=== PATIENT | female | born 1945 | race Caucasian/White ===

== ENCOUNTER → 2017-11-17 07:57 | Day surgery (SDC) | payer MEDICARE, OTHER, SELFPAY ==
--- NOTE | 2017-11-17 08:01 | PM.HP.1 ---
History of Present Illness Chief complaint: [id number] RIGHT CATARACT WITH *TORIC LENS* Narrative: So Mazariegos is a 72 year old female [facility] Surgical History History of breast augmentation History of carpal tunnel repair History of spinal fusion History of tonsillectomy Status post appendectomy Status post discectomy Status post hemorrhoidectomy Status post hysterectomy with oophorectomy Meds Home Medications Medication Instructions Recorded Confirmed Type multivitamin [Multiple Vitamins] 1 tab PO QDAY #0 06/02/17 History gabapentin [Neurontin] 600 mg PO BID #0 09/16/17 History Generic Name Dose Route Start Last Admin Trade Name Freq PRN Reason Stop Dose Admin Cyclopentolate HCl 2.5 drops/ 0 drops 11/17/17 07:48 Phenylephrine HCl 2.5 drops/ EYE-OP 11/17/17 07:49 Tropicamide 2.5 drops/ NOW ONE Ketorolac Tromethamine 2.5 drops Sod Cl/Ca Cl/Mg Cl/Pot Cl 500 0 ml 11/17/17 07:48 ml/ Epinephrine HCl 1 mg IRR 11/17/17 07:49 NOW ONE Lidocaine HCl 4 ml/ 0 ml 11/17/17 07:48 Bupivacaine HCl 4 ml/ INJ 11/17/17 07:49 Hyaluronidase 150 unit NOW ONE Lidocaine/Epinephrine 20 ml 11/17/17 07:48 Xylocaine 1% W/Epi INJ 11/17/17 07:49 NOW ONE Lidocaine/Phenylephrine 0.2 ml 11/17/17 07:48 Phenylephrine/Lidocaine EYE-OP 11/17/17 07:49 NOW ONE Moxifloxacin HCl 2 drops 11/17/17 07:48 Vigamox INJ 11/17/17 07:49 NOW ONE Neomycin/Polymyxin/Dexamethasone 1 applic 11/17/17 07:48 Maxitrol Ophth Oint EYE-RIGHT 11/17/17 07:49 NOW ONE Ofloxacin 2 drops 11/17/17 07:48 Ocuflox 0.3% Ophth EYE-RIGHT 11/17/17 07:49 NOW ONE Proparacaine HCl 2 drops 11/17/17 07:48 Parcaine 0.5% Ophth Lia EYE-OP 11/17/17 07:49 NOW ONE Proparacaine HCl 2 drops 11/17/17 07:48 Parcaine 0.5% Ophth Lia EYE-RIGHT 11/17/17 07:49 NOW ONE Sod Cl/Ca Cl/Mg Cl/Pot Cl 15 ml 11/17/17 07:48 Bss No.2 IRR 11/17/17 07:49 NOW ONE Sodium Hyaluronate 10 mg 11/17/17 07:48 Healon INJ 11/17/17 07:49 NOW ONE Sodium Hyaluronate/Chondroitin Sulf 1.05 ml 11/17/17 07:48 Duovisc INTRAOCULA 11/17/17 07:49 NOW ONE Triamcinolone 3 mg 11/17/17 07:48 Kenalog-10 INJ 11/17/17 07:49 NOW ONE Trypan Blue 0.5 ml 11/17/17 07:48 Visionblue INJ 11/17/17 07:49 NOW ONE Allergies Allergy/AdvReac Type Severity Reaction Status Date / Time diclofenac [DICLOFENAC] AdvReac Mild UPSET Unverified 10/13/17 12:04 STOMACH
--- NOTE | 2017-11-17 08:07 | P.HP_ITS ---
History of Present Illness Chief complaint: [id number] RIGHT CATARACT WITH *TORIC LENS* Narrative: So Mazariegos is a 72 year old female [facility] Surgical History History of breast augmentation History of carpal tunnel repair History of spinal fusion History of tonsillectomy Status post appendectomy Status post discectomy Status post hemorrhoidectomy Status post hysterectomy with oophorectomy Meds Home Medications Medication Instructions Recorded Confirmed Type multivitamin [Multiple Vitamins] 1 tab PO QDAY #0 06/02/17 History gabapentin [Neurontin] 600 mg PO BID #0 09/16/17 History Generic Name Dose Route Start Last Admin Trade Name Freq PRN Reason Stop Dose Admin Cyclopentolate HCl 2.5 drops/ 0 drops 11/17/17 07:48 Phenylephrine HCl 2.5 drops/ EYE-OP 11/17/17 07:49 Tropicamide 2.5 drops/ NOW ONE Ketorolac Tromethamine 2.5 drops Sod Cl/Ca Cl/Mg Cl/Pot Cl 500 0 ml 11/17/17 07:48 ml/ Epinephrine HCl 1 mg IRR 11/17/17 07:49 NOW ONE Lidocaine HCl 4 ml/ 0 ml 11/17/17 07:48 Bupivacaine HCl 4 ml/ INJ 11/17/17 07:49 Hyaluronidase 150 unit NOW ONE Lidocaine/Epinephrine 20 ml 11/17/17 07:48 Xylocaine 1% W/Epi INJ 11/17/17 07:49 NOW ONE Lidocaine/Phenylephrine 0.2 ml 11/17/17 07:48 Phenylephrine/Lidocaine EYE-OP 11/17/17 07:49 NOW ONE Moxifloxacin HCl 2 drops 11/17/17 07:48 Vigamox INJ 11/17/17 07:49 NOW ONE Neomycin/Polymyxin/Dexamethasone 1 applic 11/17/17 07:48 Maxitrol Ophth Oint EYE-RIGHT 11/17/17 07:49 NOW ONE Ofloxacin 2 drops 11/17/17 07:48 Ocuflox 0.3% Ophth EYE-RIGHT 11/17/17 07:49 NOW ONE Proparacaine HCl 2 drops 11/17/17 07:48 Parcaine 0.5% Ophth Lia EYE-OP 11/17/17 07:49 NOW ONE Proparacaine HCl 2 drops 11/17/17 07:48 Parcaine 0.5% Ophth Lia EYE-RIGHT 11/17/17 07:49 NOW ONE Sod Cl/Ca Cl/Mg Cl/Pot Cl 15 ml 11/17/17 07:48 Bss No.2 IRR 11/17/17 07:49 NOW ONE Sodium Hyaluronate 10 mg 11/17/17 07:48 Healon INJ 11/17/17 07:49 NOW ONE Sodium Hyaluronate/Chondroitin Sulf 1.05 ml 11/17/17 07:48 Duovisc INTRAOCULA 11/17/17 07:49 NOW ONE Triamcinolone 3 mg 11/17/17 07:48 Kenalog-10 INJ 11/17/17 07:49 NOW ONE Trypan Blue 0.5 ml 11/17/17 07:48 Visionblue INJ 11/17/17 07:49 NOW ONE Allergies Allergy/AdvReac Type Severity Reaction Status Date / Time diclofenac [DICLOFENAC] AdvReac Mild UPSET Unverified 10/13/17 12:04 STOMACH
--- NOTE | 2017-11-17 08:07 | PM.DS.1 ---
History of Present Illness Chief complaint: [id number] RIGHT CATARACT WITH *TORIC LENS* Narrative: So Mazariegos is a 72 year old female . See imported history and physical. Has an spinal laxity with previous surgery and wants to wear a surgical collar for support during surgery. Ordered and placed. Discharge Providers Primary care physician: Alba Razo PA-C Discharge provider: Leslee Boyd MD Summary Time Spent with Patient Total time spent providing and/or coordinating discharge services: Discharge Plan Discharge Med Rec/Prescriptions Prescriptions: No Action multivitamin [Multiple Vitamins] 1 EACH tablet 1 tab PO QDAY Qty: 0 RF: 0 tretinoin [Retin-A] 0.05 % cream 1 shavonne Topical HS Qty: 45 RF: 3 gabapentin [Neurontin] 300 MG capsule 600 mg PO BID Qty: 0 RF: 0 tramadol 50 MG tablet 100 mg PO BID RF: 0 bimatoprost [Lumigan] 0.01 % Drops 1 drp ophthalmic (eye) DAILY RF: 0 Discharge Data Primary Care Provider: Alba Razo Attending Provider: Leslee Boyd
[2017-11-17] MEDS: PROPARACAINE 0.5% OPHTH SOL 2 DROPS EYE-RIGHT (08:18)
[2017-11-17] MEDS: CYCLOPENTOLATE 1% OPHTH 2.5 DROPS, PHENYLEPHRINE 2.5% OPHTH 2.5 DROPS, TROPICAMIDE 1% O... EYE-OP (08:24)
--- NOTE | 2017-11-17 08:24 | P.OP_ITS ---
Procedure & Clinicians Procedure: Date of service: November 17, 2017 Preoperative diagnoses: 1. Right cortical Cataract,use of capsular dye.Advanced cataract Postoperative diagnoses: 1. Cataract cortical nuclear sclerotic Procedure: Phacoemulsification with posterior chamber intraocular lens implant Surgeon: Leslee Boyd MD Complications: None Specimen: None Implant: [id number] +26.0 [place] 017 Blood loss: None Anesthesia: Retrobulbar with monitored standby Anesthesiologist: Margarito Farrell Description of procedure: Patient is a female year old with decreased vision due to cataract which is affecting activities of daily living. She wants surgery to improve vision. She wants a toric IOL to reduce astigmatism. Advanced cataract with short axial length.Proparacaine drops were placed and the eye marked in the sitting position. She was taken to the operating room and given IV sedation. A retrobulbar block insert consisting of 6 cc of 2% xylocaine without epinephrine mixed half and half with 0.5% Marcaine with 1 cc of hyaluronidase added is placed between the medial and lateral 1/3 in the right of the inferior orbital rim. Lid akinesia is obtain with 1% xylocaine with epinephrine infiltrated along the lid margin. The eye is manually massaged for 30 sec, prepped using Betadine solution, and draped in the usual sterile fashion. Temporal approach was made, a 1 mm side-port incision was made at the 7:30 position. Phenylephrine 1.5% mixed with 1% xylocaine 0.2 cc was placed into the anterior chamber.An air bubble followed by capsular dye placed to improve visibility. Viscoat followed by Healon was then placed. A 2.6 mm clear incision with a 2.6 mm blade was placed at the 170 degree meridian. A 360 degree capsulorrhexis style capsulotomy was then performed with a cystitome needle on a Healon. Hydrodelineation and hydrodissection were performed. The phacoemulsification unit is introduced, and sculpting notice used to groove the central lens. It is then removed in chopping mode. Epi nucleus is removed with epinuclear mode and irrigation aspiration was used to remove the peripheral cortex. The posterior capsule is polished. Indelible ink patricio were placed at the 017 degree meridian. The intraocular lens is selected, inspected, power confirmed, and placed in the posterior chamber. The pupil was not constricted. The wound was stromally hydrated and tested for leaks, there was none and was left sutureless. Vigamox 0.1 cc was placed into the anterior chamber. Kenalog 0.2 cc was placed in the superior subconjunctival space. A drop of antibiotic and was placed and the eye was patched and shielded. The patient was stable and returned to the recovery room in excellent condition. Dictated by: Leslee Boyd MD Copy to: [facility]
[2017-11-17 08:35] VITALS: BP 139/77; PULSE 64; RESP 16; TEMP 36.9; O2SAT 100
--- NOTE | 2017-11-17 09:22 | SUR.OPER ---
Supine on eye stretcher, head on extension cradle secured with tape. Arms tucked at sides with blanket. Pillow under knees.
[2017-11-17] MEDS: CHONDROIDTIN/SOD HYALURONATE 1.05 ML SYRINGE INTRAOCULA (09:24)
[2017-11-17] MEDS: HYALURONATE SODIUM 10 MG/ML SYRINGE INJ (09:25)
[2017-11-17] MEDS: LIDOCAINE 1% W/EPI INJ 20 ML INJ (09:25)
[2017-11-17] MEDS: MOXIFLOXACIN OPHTH DROPS 3 ML BOTTLE 2 DROPS INJ (09:25)
[2017-11-17] MEDS: NEOMYCIN/POLY/DEX OPHTH OINT 1 APPLIC EYE-RIGHT (09:26)
[2017-11-17] MEDS: OFLOXACIN 0.3% OPHTH 5 ML 2 DROPS EYE-RIGHT (09:27)
[2017-11-17] MEDS: PHENYLEPHRINE/LIDOCAINE 3ML VIAL (OR) EYE-OP (09:28)
[2017-11-17] MEDS: TRIAMCINOLONE 50 MG/5 ML VIAL INJ (09:28)
[2017-11-17] MEDS: BALANCED SALT IRRIG SOLN NO.2 500 ML, EPINEPHrine 1 MG IRR (09:29)
[2017-11-17] MEDS: TRYPAN BLUE 0.5 ML SYRINGE INJ (09:29)
[2017-11-17] MEDS: LIDOCAINE 2% 4 ML, BUPIVACAINE 0.5% (PF) 4 ML, HYALURONIDASE 150 UNIT INJ (09:30)
[2017-11-17] MEDS: PROPARACAINE 0.5% OPHTH SOL 2 DROPS EYE-OP (09:31)
[2017-11-17] MEDS: BALANCED SALT IRRIG SOLN NO.2 15 ML IRRIG.SOLN IRR (09:31)
[2017-11-17 09:54] VITALS: BP 135/80; PULSE 59; RESP 15; TEMP 36.6; O2SAT 99
--- NOTE | 2017-11-17 10:04 | P.DS_ITS ---
History of Present Illness Chief complaint: [id number] RIGHT CATARACT WITH *TORIC LENS* Narrative: So Mazariegos is a 72 year old female . See imported history and physical. Has an spinal laxity with previous surgery and wants to wear a surgical collar for support during surgery. Ordered and placed. Discharge Providers Primary care physician: Alba Razo PA-C Discharge provider: Leslee Boyd MD Summary Time Spent with Patient Total time spent providing and/or coordinating discharge services: Discharge Plan Discharge Med Rec/Prescriptions Prescriptions: No Action multivitamin [Multiple Vitamins] 1 EACH tablet 1 tab PO QDAY Qty: 0 RF: 0 tretinoin [Retin-A] 0.05 % cream 1 shavonne Topical HS Qty: 45 RF: 3 gabapentin [Neurontin] 300 MG capsule 600 mg PO BID Qty: 0 RF: 0 tramadol 50 MG tablet 100 mg PO BID RF: 0 bimatoprost [Lumigan] 0.01 % Drops 1 drp ophthalmic (eye) DAILY RF: 0 Discharge Data Primary Care Provider: Alba Razo Attending Provider: Leslee Boyd
== END ==
PROVIDERS: PCP Physician Assistant; Visit Provider Ophthalmology
DX: H25.11 Age-related nuclear cataract, right eye (principal)
CPT/HCPCS: J0171; J2704; J3301; J3470; V2787

== ENCOUNTER 2017-12-20 13:13 | Emergency (ER) | payer MEDICARE, OTHER, SELFPAY ==
[2017-12-20 13:23] VITALS: BP 134/73; PULSE 65; RESP 14; TEMP 36.6; O2SAT 98; BMI 20.1
[2017-12-20 13:39] LABS: Appearance Urine UA SL CLOUDY; Bilirubin Urine UA NEGATIVE (NEGATIVE); Color Urine UA YELLOW; Glucose Urine UA NEGATIVE (Normal); Ketones Urine UA NEGATIVE (NEGATIVE); Leukocyte Esterase Urine UA 1+ (NEGATIVE); Nitrite Urine UA Negative (Negative); Occult Blood Urine UA 3+ (Negative); Protein Urine UA 2+ (Negative); Urobilinogen Urine UA 0.2 E.U./dL (0.2); pH Urine UA 6.5 (4.5-8.0)
--- NOTE | 2017-12-20 13:48 | ED_ITS ---
HPI - Female Genitourinary General Chief complaint: Urogenital-Female Stated complaint: blood in urine Time Seen by Provider: 12/20/17 13:46 Source: patient Mode of arrival: ambulatory Limitations: no limitations History of Present Illness HPI Narrative: 72-year-old female with a history of chronic back pain presents with dysuria, urinary frequency, and hematuria since this morning at 3:00 a.m.. She has been trying to ride out the symptoms and see if they get better but she is unable to get comfortable and came to the ER for attention. Denies back pain, fevers, chills, or body aches. She has had urinary tract infections in the past, the most recent was 10 years ago, and she states symptoms feel similar today. MD Complaint: dysuria Related Data Home Medications Medication Instructions Recorded Confirmed multivitamin [Multiple Vitamins] 1 tab PO QDAY #0 06/02/17 12/20/17 gabapentin [Neurontin] 600 mg PO BID #0 09/16/17 12/20/17 bimatoprost [Lumigan] 1 drp OPHTHALMIC (EYE) DAILY 11/17/17 12/20/17 tramadol 100 mg PO BID 11/17/17 12/20/17 Previous Rx's Medication Instructions Recorded tretinoin [Retin-A] 1 shavonne TOPICAL HS #45 gm 06/02/17 ciprofloxacin HCl [Cipro] 500 mg PO BID #10 tab 12/20/17 Allergies Allergy/AdvReac Type Severity Reaction Status Date / Time No Known Drug Allergies Allergy Verified 11/17/17 08:17 Review of Systems Review of Systems All systems reviewed & are unremarkable except as noted in HPI and below Constitutional Denies chills, Denies fever(s), Denies lethargy and Denies weakness Eyes Denies change in vision, Denies eye discharge, Denies irritation and Denies loss of vision ENT Ears, Nose, Mouth, and Throat: Denies change in voice, Denies neck pain and Denies sore throat Cardiovascular Denies chest pain, Denies irregular heart rhythm, Denies lightheadedness, Denies palpitations, Denies dyspnea, Denies dyspnea on exertion and Denies orthopnea Respiratory Denies cough, Denies dyspnea, Denies dyspnea on exertion and Denies wheezing Gastrointestinal Gastrointestinal: Denies abdominal pain, Denies change in bowel habits, Denies diarrhea, Denies nausea and Denies vomiting Genitourinary Reports hematuria, Denies dysuria, Denies flank pain, Reports urinary incontinence and Reports urinary urgency Musculoskeletal Denies neck pain Integumentary/Breasts Denies pruritus, Denies erythema, Denies rash and Denies wounds Neurologic Denies confusion, Denies loss of vision and Denies weakness Psychiatric Denies anxiety, Denies confusion, Denies depression, Denies homicidal ideation and Denies suicidal ideation Endocrine Denies palpitations Hematologic/Lymphatic Denies easy bruising Allergic/Immunologic Denies wheezing PFSH Surgical History History of breast augmentation History of carpal tunnel repair History of spinal fusion History of tonsillectomy Status post appendectomy Status post discectomy Status post hemorrhoidectomy Status post hysterectomy with oophorectomy Social History household members: spouse Smoking Status: Never smoker Exam Initial Vital Signs Initial Vital Signs: Vital Signs Temperature 97.8 F 12/20/17 13:23 Pulse Rate 65 12/20/17 13:23 Respiratory Rate 14 12/20/17 13:23 Blood Pressure 134/73 H 12/20/17 13:23 Pulse Oximetry 98 12/20/17 13:23 Const General: cooperative and well developed Nutritional Appearance: well nourished Orientation: alert, awake, oriented x3 and not confused [facility] Head: normocephalic and atraumatic Ears: external ears normal and TM's normal bilaterally Nose: external nose normal and No nasal discharge Face and sinus: sinuses nontender, face symmetric, no sinus tenderness and No dry mucous membranes Mouth: oral mucosae normal and moist mucous membranes Teeth and gingiva: dentition normal Throat: tonsils normal and uvula midline Eyes General: appearance normal, both eyes and all related structures Eyelids: eyelids normal Conjunctivae: conjunctivae normal Sclera: sclerae normal Pupils: PERRL EOM: EOM intact bilaterally Neck Neck: normal visual inspection, trachea midline, No lymphadenopathy, No midline deformity and No JVD Lymphatic: No lymphedema Chest Chest: normal inspection of the chest Resp Effort & Inspection: normal respiratory effort, able to speak in complete sentences, no respiratory distress and no use of accessory muscles Auscultation: clear to auscultation bilaterally, no rales, no rhonchi and no wheezes Cardio Rate: regular rate Rhythm: regular rhythm Heart Sounds: no click, no gallops, no murmurs and no rubs Pulses: normal peripheral pulses GI Inspection: non-distended Palpation: soft, no hepatosplenomegaly, No guarding, No pulsatile mass and tender Auscultation: normal bowel sounds Other: Mild suprapubic abdominal tenderness to palpation Back/Spine/Pelvis Back: No CVA tenderness Cervical Spine: cervical ROM normal and No pain with cervical ROM Thoracic/Lumbar Spine: thoracic and lumbar spine normal to inspection Skin General: no rashes or lesions noted, No jaundice and No petechiae Neuro General: alert, oriented x3, gait normal and no focal motor deficits Speech: speech normal Extrem General: full ROM, no clubbing, cyanosis or edema, no pedal edema and no calf tenderness Psych Appearance: well kempt Mental Status: mental status grossly normal Attitude: cooperative Thought Content: normal and suicidality Judgment: judgment good Course Orders Ordered: ED Orders 12/20/17 13:35 Urinalysis and Microscopic Stat Urine Culture Stat Discontinued Medications Ciprofloxacin (Cipro) 500 mg PO NOW ONE Stop: 12/20/17 14:34 Last Admin: 12/20/17 14:39 Dose: 500 mg Phenazopyridine HCl (Pyridium) 200 mg PO NOW ONE Stop: 12/20/17 14:34 Last Admin: 12/20/17 14:39 Dose: 200 mg Vital Signs - 8 hr 12/20/17 13:23 Temperature 97.8 F Pulse Rate 65 Respiratory Rate 14 Blood Pressure 134/73 H Pulse Oximetry 98 MDM - Female Genitourinary Lab Data Attestation: I reviewed the patient's lab results. Lab Results 12/20/17 Range/Units 13:35 Urine Color Yellow Urine Appearance Sl cloudy Urine pH 6.5 (4.5-8.0) Ur Specific [place] 1.020 (1.000-1.035) Urine Protein 2+ H (Negative) Urine Glucose (UA) Negative (Normal) g/dL Urine Ketones Negative (NEGATIVE) Urine Occult Blood 3+ H (Negative) Urine Nitrate Negative (Negative) Urine Bilirubin Negative (NEGATIVE) Urine Urobilinogen 0.2 (0.2) E.U./dL Ur Leukocyte Esterase 1+ H (NEGATIVE) Urine RBC 10-30/hpf H (0-5/HPF) Urine WBC 5-10/hpf H (0-5/HPF) Ur Squamous Epith Cells 0-1 /hpf Urine Bacteria Few (2-10) H (None) Ur Culture Indicated? Specimen cultured Micro UA Comment Not Reportable MDM Narrative Medical decision making narrative: Patient's symptoms and urinalysis are consistent with UTI. She was given Pyridium and Cipro and instructions for close follow-up. No evidence of pyelo or kidney stone without CVA tenderness or pain. Discharge Plan Departure Patient Disposition: Home, Self-Care Clinical Impression: Acute UTI, Dysuria, Hematuria Instructions: Urinary Tract Infection Activity Restrictions/Additional Instructions: Thank you for trusting us with your care today. Please take the Pyridium as needed for discomfort and Cipro at for the next 5 days for urinary tract infection. Return to the ER for new or worsening symptoms. Follow up with your primary care provider within 1 week for re-evaluation if not improving. Cranberry juice can be helpful. Prescriptions: New ciprofloxacin HCl [Cipro] 500 mg tablet 500 mg PO BID Qty: 10 RF: 0 No Action multivitamin [Multiple Vitamins] 1 EACH tablet 1 tab PO QDAY Qty: 0 RF: 0 tretinoin [Retin-A] 0.05 % cream 1 shavonne Topical HS Qty: 45 RF: 3 gabapentin [Neurontin] 300 MG capsule 600 mg PO BID Qty: 0 RF: 0 tramadol 50 MG tablet 100 mg PO BID RF: 0 bimatoprost [Lumigan] 0.01 % Drops 1 drp ophthalmic (eye) DAILY RF: 0
[2017-12-20 13:50] LABS: Bacteria Urine Few (2-10); Culture Indicated Urine Specimen Cultured; RBC Urine 10-30/HPF (0-5/HPF); Squamous Epithelial Cell Urine 0-1 /HPF; WBC Urine 5-10/HPF (0-5/HPF)
[2017-12-20] MEDS: CIPROFLOXACIN 500 MG TABLET PO (14:39)
[2017-12-20] MEDS: PHENAZOPYRIDINE 100 MG TABLET 200 MG PO (14:39)
== END 2017-12-20 15:04 | disposition home or self-care (01) ==
PROVIDERS: Emergency Provider Emergency Medicine; PCP Physician Assistant
DX: N39.0 Urinary tract infection, site not specified (principal); R30.0 Dysuria; R31.9 Hematuria, unspecified
CPT/HCPCS: 81001; 87077; 87086; 87186; 99282; 99283

== ENCOUNTER → 2018-06-03 09:58 | Outpatient (CLI) | payer MEDICARE, OTHER, SELFPAY ==
[2018-06-03 11:42] LABS: Add Manual Diff / Slide Review NO; Basophils Percent Auto 1.3 % (0-2); Eosinophils Percent Auto 7.3 % (2-4); Hematocrit 42.7 % (36-46); Hemoglobin 14.4 g/dL (12.0-16.0); Lymphocytes Percent Auto 35.4 % (25-40); Mean Corpuscular HGB Conc 33.6 % (30-36); Mean Corpuscular Hemoglobin 29.2 PG (26-34); Mean Corpuscular Volume 86.7 fL (80-100); Monocytes Percent Auto 6.9 % (3-14); Neutrophils Absolute Auto 2300 /uL (3000-5900); Neutrophils Percent Auto 49.1 % (50-75); Platelet Count 199 X10^3/uL (150-400); Red Blood Cell Count 4.92 X10^6/uL (4.0-5.2); Red Cell Distribution Width 13.9 % (11.6-14.8); White Blood Cell Count 4.8 X10^3/uL (4.5-11.0)
[2018-06-03 12:00] LABS: Hemoglobin A1C% w Est Avg Glu 5.7 % (4.0-6.0)
[2018-06-03 12:03] LABS: HEMOLYSIS < 15 (0-50); Iron 139 ug/dL (37-170)
[2018-06-03 12:15] LABS: Alanine Aminotransferase 28 IU/L (9-52); Albumin 4.3 g/dL (3.5-5.0); Albumin Globulin Ratio 1.5 (1.0-2.8); Alkaline Phosphatase 71 U/L (38-126); Aspartate Aminotransferase 27 IU/L (14-36); BUN Creatinine Ratio 18.6 (6-22); Bilirubin Total 0.6 mg/dL (0.2-1.3); Blood Urea Nitrogen 13 mg/dL (7-17); Calcium 9.1 mg/dL (8.4-10.2); Carbon Dioxide 29 mmol/L (22-32); Chloride 102 mmol/L (98-107); Cholesterol 220 mg/dL (140-199); Estimated Glomerular Filt Rate > 60.0 mL/min (>60); Globulin 2.8 g/dL (1.7-4.1); Glucose 102 mg/dL (80-110); HDL Cholesterol 70 mg/dL (40-60); HEMOLYSIS < 15 (0-50); LDL Cholesterol Calculated 137 mg/dL (<100); Percent Iron Saturation 41 % (15-50); Potassium 4.3 mmol/L (3.4-5.1); Sodium 144 mmol/L (137-145); Total Iron Binding Capacity 340 ug/dL (265-497); Total Protein 7.1 g/dL (6.3-8.2); Transferrin 277 mg/dL (206-381); Triglycerides 63 mg/dL (35-150)
[2018-06-03 12:24] LABS: Vitamin D 25 Hydroxy (D3) 43.5 ng/mL (30.0-100.0)
[2018-06-03 12:38] LABS: Thyroid Stimulating Hormone 2.75 uIU/mL (0.47-4.68)
[2018-06-03 12:46] LABS: Ferritin 64.2 ng/mL (11.1-264)
== END ==
PROVIDERS: PCP Physician Assistant; Visit Provider Physician Assistant
DX: E78.2 Mixed hyperlipidemia (principal); R26.89 Other abnormalities of gait and mobility; R53.83 Other fatigue; M81.0 Age-related osteoporosis without current pathological fracture
CPT/HCPCS: 36415; 80053; 80061; 82306; 82728; 83036; 83540; 83550; 84443; 85025

== ENCOUNTER → 2018-06-16 07:20 | Outpatient (CLI) | payer MEDICARE, OTHER, SELFPAY ==
--- NOTE | 2018-06-16 07:22 | DI.US.S_ITS ---
PROCEDURE: US ABDOMEN COMPLETE INDICATIONS: BRUIT TECHNIQUE: Real-time scanning was performed of the abdominal and retroperitoneal organs, with image documentation. COMPARISON: [facility], MR, ABDOMEN W/O CONTRAST, 06/08/2013, 7:56. FINDINGS: Liver: Liver is normal in size and homogeneous in echotexture. Gallbladder: The bladder is normal in size without gallbladder wall thickening or pericholecystic fluid. There are 2 nonobstructing calculi identified within the gallbladder. Biliary ducts: Intrahepatic bile ducts are non-dilated. Extrahepatic bile duct caliber measures 7 mm. The common bile duct is within normal limits given the patient's age. Pancreas: Visualized portions of the pancreas are sonographically normal. Spleen: Spleen is normal in size and homogeneous in echotexture. Kidneys: Kidneys are normal in size and echotexture. Right kidney measures 10.4 cm long; left kidney measures 10.6 cm long. No hydronephrosis or nephrolithiasis. No solid masses. A simple appearing cyst is identified involving the anterior inferior aspect of the right kidney, measuring up to 1.5 cm in diameter. Aorta: Visualized aorta is normal in caliber at less than 3 cm. the largest AP dimension of the abdominal aorta is present within the upper abdominal aorta, measuring 2.1 cm in diameter. Iliacs: Proximal common iliac arteries are normal in caliber at less than 2.5 cm. IVC: Intrahepatic inferior vena cava is patent. Miscellaneous: No free abdominal fluid. IMPRESSION: 1. No evidence of abdominal aortic aneurysm. 2. Unremarkable liver. 3. Cholelithiasis without cholecystitis. 4. Simple right renal cyst. Dictated by: Deepak Wesley M.D. on 06/16/2018 at 8:30 Approved by: Deepak Wesley M.D. on 06/16/2018 at 8:33
--- NOTE | 2018-06-16 07:22 | DI.ECHO.S_ITS ---
[place] +---------+ Hospital +---------+ : : [address] : : : : [id number] : : : : Phone: [phone] Echocardiogram Report + + :Name: ALESSIA ROMO Study Date: 06/16/2018 Height: 60 in : :[facility] Weight: 100 lb : : Gender: Female BSA: 1.4 m2 : :: 1945 Age: 73 yrs BP: 130/74 mmHg: :Reason For Study: Murmur : :Ordering Physician: EUGENIA Willis : :Dung Performed By: Moni Campbell : + + Interpretation Summary Normal left ventricle size with ejection fraction 60-65%. Grade I diastolic dysfunction. Mild aortic valve sclerosis. Mild mitral annular calcification. The ascending aorta is at the upper limits of normal in size. Procedure: A two-dimensional transthoracic echocardiogram with color flow and Doppler was performed. Images from the parasternal window were difficult to obtain and are suboptimal in quality. There is no prior echocardiogram noted for this patient. The patient was in normal sinus rhythm during the exam. The heart rate ranged between 53-66 bpm during the study. Left Ventricle: The left ventricle is normal in size. There is normal left ventricular wall thickness. There is no ventricular septal defect visualized. The ejection fraction is estimated to be 60-65%. There are no focal wall motion abnormalities. Diastolic parameters suggest a relaxation abnormality of the left ventricle, consistent with probable normal filling pressures. Right Ventricle: The right ventricle is normal in size and function. Atria: Both atria are normal in size. There is no Doppler evidence for an interatrial shunt. Mitral Valve: The mitral valve leaflets are slightly calcified. There is mild mitral annular calcification. There is trace mitral regurgitation. Aortic Valve: The aortic valve is not well visualized. The aortic valve is mildly calcified. There is mild aortic valve sclerosis. There is trace aortic regurgitation. Tricuspid Valve: The tricuspid valve is normal in structure and function. There is trace tricuspid regurgitation. Pulmonic Valve: The pulmonic valve is normal in structure and function. The pulmonic valve is best visualized from Apical and Subcostal views. There is a trace or physiologic amount of pulmonic regurgitation. Great Vessels: The aortic root is normal size. The ascending aorta is at the upper limits of normal in size. The aortic arch is normal in size. The IVC is of normal diameter and collapses greater than 50% with a sniff. This suggests a low right atrial pressure of 3 mm Hg. Pericardium/ Pleura There is no pericardial effusion. There is no pleural effusion. MMode/2D Measurements & Calculations LVIDd: 3.8 cm LVOT diam: 2.0 cm LVIDs: 2.3 cm Ao root diam: 3.0 cm FS: 39.1 % asc Aorta Diam: 3.4 cm EPSS: 0.30 cm Ao Arch Diam (Prox Trans): 2.6 cm IVSd: 0.86 cm LVPWd: 0.95 cm LV macias. diameter/BSA (cm/m^2): 2.8 LV sys. diameter/BSA (cm/m^2): 1.7 LA A2 area: 14.1 cm2 RA long axis: 3.6 cm LA A4 area: 12.5 cm2 RA area: 10.3 cm2 LA length (vol): 3.5 cm RA vol: 25.3 ml LA vol: 42.3 ml RA : 18.2 ml/m2 LA vol index: 30.4 ml/m2 IVC diam: 1.4 cm RVD1 (basal): 3.5 cm RVD2 (mid): 2.3 cm TAPSE: 2.7 cm Doppler Measurements & Calculations Ao V2 max: 128.5 cm/sec LVOT Max Paul: 102.6 cm/sec Ao V2 mean: 79.2 cm/sec LV V1 max P.2 mmHg Ao max P.6 mmHg LV V1 VTI: 17.3 cm Ao mean P.0 mmHg BANG(I,D): 2.5 cm2 Ao V2 VTI: 22.4 cm BANG(V,D): 2.6 cm2 sev ratio: 0.77 BANG indexed to BSA (cm^2/m^2): 1.8 MV E max paul: 72.5 cm/sec TR max paul: 231.1 cm/sec MV A max paul: 94.2 cm/sec TR max P.4 mmHg MV E/A: 0.77 PA V2 max: 82.8 cm/sec Med Peak E' Paul: 5.8 cm/sec PA V2 mean: 54.5 cm/sec E/E' med: 12.5 PA mean P.4 mmHg Lat Peak E' Paul: 9.2 cm/sec PA Accel Time: 0.14 sec E/E' lat: 7.9 E/e' average: 10.2 MV dec time: 0.32 sec MV P1/2t: 94.2 msec MV P1/2t max paul: 73.1 cm/sec MVA(2t): 2.3 cm2 Electronically signed by: Clemente Jefferson on Reading Physician:06/16/2018 12:02 PM
== END ==
PROVIDERS: PCP Physician Assistant; Visit Provider Physician Assistant
DX: I35.8 Other nonrheumatic aortic valve disorders (principal); R01.1 Cardiac murmur, unspecified; R09.89 Other specified symptoms and signs involving the circulatory and respiratory systems
CPT/HCPCS: 76700; 93306

== ENCOUNTER → 2018-06-29 09:34 | Outpatient (CLI) | payer MEDICARE, OTHER, SELFPAY ==
--- NOTE | 2018-06-29 09:36 | DI.NM.S_ITS ---
PROCEDURE: NM HIDA WITH CCK PHARMACEUTICAL: 4.8 mCi Tc-99m mebrofenin IV; a 0.9 mcg CCK IV. INDICATIONS: Flank Pain TECHNIQUE: Following intravenous administration of Tc-99m mebrofenin, sequential anterior abdominal images were obtained. To evaluate the contractile response of the gallbladder in response to Cholecystokinin (CCK), sincalide (0.02 ?g/kg) was administered by slow intravenous infusion approximately 60 minutes after the administration of the radiopharmaceutical. Sequential imaging was continued for 30 minutes after the start of CCK infusion. Gallbladder ejection fraction was calculated. COMPARISON: None. FINDINGS: Biliary scan: There is normal tracer uptake and excretion by the liver. There is normal visualization of the intrahepatic ducts, common bile duct, and gallbladder. There is normal tracer transit into the duodenum. CCK stimulation: There is abnormal contractile response of the gallbladder to CCK infusion. The calculated gallbladder ejection fraction is essentially 0%; normal values are above 35%. It has been shown that any patient abdominal pain after CCK administration is related to the rate of CCK injection, rather than to any underlying gallbladder disease (Clinical Nuclear Medicine 2012; 37: 63-70. Journal of Nuclear Medicine 2014; 55: 1-9). IMPRESSION: The hepatocellular uptake and excretion of the radioisotope is normal and the cystic duct is patent but there is abnormal diminished gallbladder contractility with essentially 0% gallbladder ejection fraction over the course of this examination. Dictated by: Stef Witt M.D. on 06/29/2018 at 12:19 Approved by: Stef Witt M.D. on 06/29/2018 at 12:21
== END ==
PROVIDERS: PCP Physician Assistant; Visit Provider Physician Assistant
DX: K80.20 Calculus of gallbladder without cholecystitis without obstruction (principal)
CPT/HCPCS: 78227; A9537; J2805

== ENCOUNTER → 2018-07-19 15:00 | Outpatient (CLI) | payer MEDICARE, OTHER, SELFPAY ==
--- NOTE | 2018-07-19 15:03 | DI.RAD.S_ITS ---
PROCEDURE: XR CHEST 2V INDICATIONS: Pre op TECHNIQUE: 2 views of the chest were acquired. COMPARISON: [facility], , CHEST 2 VIEW, 09/16/2017, 16:32. FINDINGS: Surgical changes and devices: Prior cervical fusion rods extending from the uppermost margin of the imaging into the upper thoracic spine.. Lungs and pleura: No pleural effusions or pneumothorax. Lungs are clear. Mediastinum: Mediastinal contours are normal. Heart size is normal. Bones and chest wall: No suspicious bony abnormalities. Soft tissues appear unremarkable. IMPRESSION: Prior bilateral previously documented cervical fusion rods and transverse pedicle screws crossing the cervicothoracic junction. No acute disease, no contraindication to operative procedure is found. Dictated by: Stef Witt M.D. on 07/19/2018 at 15:57 Approved by: Stef Witt M.D. on 07/19/2018 at 15:58
== END ==
PROVIDERS: PCP Physician Assistant; Visit Provider Physician Assistant
DX: Z01.818 Encounter for other preprocedural examination (principal); R07.9 Chest pain, unspecified; Z98.1 Arthrodesis status
CPT/HCPCS: 71046

== ENCOUNTER → 2018-07-28 08:49 | Outpatient (CLI) | payer MEDICARE, OTHER, SELFPAY ==
[2018-07-28 09:04] LABS: RBC Urine None Seen (0-5/HPF)
[2018-07-28 09:36] LABS: Appearance Urine UA CLEAR; Bilirubin Urine UA NEGATIVE (NEGATIVE); Color Urine UA YELLOW; Glucose Urine UA NEGATIVE (Negative); Ketones Urine UA NEGATIVE (NEGATIVE); Leukocyte Esterase Urine UA NEGATIVE (NEGATIVE); Nitrite Urine UA NEGATIVE (Negative); Occult Blood Urine UA NEGATIVE (Negative); Protein Urine UA NEGATIVE (Negative); Urobilinogen Urine UA 0.2 E.U./dL (0.2)
[2018-07-28 10:10] LABS: WBC Urine 0-1/HPF (0-5/HPF)
[2018-07-28 10:11] LABS: Bacteria Urine Occasional (0-1); Culture Indicated Urine Cult Not Indicated; Squamous Epithelial Cell Urine 0-1 /HPF
== END ==
PROVIDERS: PCP Physician Assistant; Visit Provider Physician Assistant
DX: R30.0 Dysuria (principal)
CPT/HCPCS: 81001

== ENCOUNTER → 2018-08-25 12:14 | Outpatient (CLI) | payer MEDICARE, OTHER, SELFPAY ==
--- NOTE | 2018-08-25 12:16 | DI.RAD.S_ITS ---
PROCEDURE: XR CERVICAL SPINE 2V OR 3V INDICATIONS: Check hardware;hx of cervical fusion TECHNIQUE: 3 view(s) of the cervical spine were acquired. COMPARISON: None. FINDINGS: Bones: No fractures or dislocations to the C7 level. The lateral masses of C1 appear intact on the odontoid view. No suspicious bony lesions. Paraspinal mariella and articular pillar screw fixation appears intact from C3-upper thoracic spine. There is surgical sequela from posterior decompression. There is expected postoperative alignment. No evidence of hardware loosening. Severe diffuse cervical spondylosis Soft tissues: No prevertebral soft tissue swelling. IMPRESSION: Expected postoperative alignment. Cervical posterior spinal fixation hardware appears intact. Dictated by: Adi Hoyt M.D. on 08/25/2018 at 13:58 Approved by: Adi Hoyt M.D. on 08/25/2018 at 14:01
== END ==
PROVIDERS: PCP Physician Assistant; Visit Provider Physician Assistant
DX: M54.2 Cervicalgia (principal); M47.812 Spondylosis without myelopathy or radiculopathy, cervical region; Z98.1 Arthrodesis status
CPT/HCPCS: 72040

== ENCOUNTER 2018-09-27 13:59 | Day surgery (SDC) | payer MEDICARE, OTHER, SELFPAY ==
--- NOTE | 2018-09-27 | PATH_ITS ---
[facility] Accession Number: [id number] . 01 Material submitted: . RECTAL POLYP . 02 Diagnosis: Rectum, Polyp, Biopsy: Hyperplastic polyp. MRV/09/29/2018 . 02 Electronically signed: . Tiffanie Shetty MD, Pathologist NPI- [id number] . 01 Gross description: . RECTAL POLYP: Received in formalin is 1 fragment(s) of urias, soft tissue measuring 0.5 x 0.3 x 0.3 cm submitted entirely in 1 cassette(s) /CKI /CKI . 02 Pathologist provided ICD-10: K62.1 . 02 CPT . 848586 Performed at: 01 [facility] [address] [facility], [place], [place] [id number] MD Rajesh Carroll MD Phone: [phone] Performed at: 02 [facility] [address] [place], [place] [id number] MD Tiffanie Shetty MD Phone: [phone]
[2018-09-27 14:15] VITALS: BP 133/69; PULSE 62; RESP 18; TEMP 36.5; O2SAT 97; BMI 20.4
[2018-09-27] MEDS: SODIUM CHLORIDE 0.9% 1,000 ML 200 ML IV (14:26)
--- NOTE | 2018-09-27 14:40 | PM.HP.1 ---
History of Present Illness Date Patient Seen: 09/27/18 Time Patient Seen: 14:40 Chief complaint: [id number] Narrative: So is a very pleasant 73-year-old lady who presents for screening colonoscopy. She reports her last colonoscopy was 10 years ago and was completely normal. She denies any new problems or symptoms related to the function of her GI tract. She reports she has colonoscopy as per the health maintenance program. She denies any pain today. She does have an extensive surgical history but says she feels well. Patient History Surgical History History of breast augmentation History of carpal tunnel repair History of spinal fusion History of tonsillectomy Status post appendectomy Status post discectomy Status post hemorrhoidectomy Status post hysterectomy with oophorectomy Social History household members: spouse Smoking Status: Never smoker second hand exposure: Yes (My parents and grandparents smoked) alcohol intake: never substance use type: does not use Family & Social History Social History: household members spouse Tobacco & Substance use: Smoking Status Never smoker alcohol intake never alcohol intake frequency 0-2 drinks per day Substance Use Type does not use Meds Home Medications Medication Instructions Recorded Confirmed Type gabapentin 300 mg capsule 600 mg PO BID #360 cap 01/24/18 09/27/18 Rx tramadol 50 mg tablet 100 mg PO BID PRN #120 tab 08/23/18 09/27/18 Rx Allergies Allergy/AdvReac Type Severity Reaction Status Date / Time No Known Drug Allergies Allergy Verified 06/01/18 09:03 Review of Systems Review of Systems All systems reviewed & are unremarkable except as noted in HPI and below Exam Vital Signs (past 8 hours): - 09/27/18 14:15 Temperature 97.7 F Pulse Rate 62 Respiratory Rate 18 Blood Pressure 133/69 Pulse Oximetry 97 Oxygen Delivery Method Room Air Narrative Exam Narrative: Very pleasant woman who appears much younger than her stated age HEENT: Normocephalic. There is a long wide scar on the posterior aspect of her neck consistent with prior surgery and again on the mid back region. Neck is otherwise supple with no significant adenopathy. Pupils are equal round reactive to light accommodation and sclera are anicteric lungs: Clear to auscultation bilaterally heart: Regular rate and rhythm without murmur rub or gallop abdomen: Soft, nontender, active bowel sounds extremities: Warm and well perfused and without edema. Assessment & Plan Assessment & Plan narrative: Very pleasant and generally healthy lady here for screening colonoscopy. We discussed the risks and benefits of the procedure and the patient has expressed desire to complete it today.
[2018-09-27] MEDS: MIDAZOLAM 5 MG/5 ML VIAL IV (14:52)
[2018-09-27] MEDS: fentaNYL 250 MCG/5 ML INJ IV (14:53)
--- NOTE | 2018-09-27 15:25 | PM.OP.1 ---
Operative Date/Time/Diagnoses Date of procedure: 09/27/18 Time of procedure: 15:25 Pre-op diagnosis: Screening Post-op diagnosis: same Procedure & Clinicians Procedure: colonoscopy to the cecum with polypectomy x1 Same procedure as scheduled: Yes Indications: last colonoscopy 10 years ago Surgeon: Rosibel Pruitt Click Yes if Unassisted: Yes Anesthesia Type: Sedation ( Versed 5 mg; fentanyl 200 mcg) Operative Notes Findings: 1. Very poor prep with solid stool in segments throughout the colon and a great deal of solid and liquid material mixed 2. limited examination due to the prep quality 3. A single 3 mm polyp at 15 cm from the anal verge removed with cold forceps and retained for pathology 4. Minimal diverticulosis limited the sigmoid region 5. Tortuous colon requiring external pressure and position changes to reach the ileocecal valve Estimated Blood Loss (mL): 1 Procedure in detail: After obtaining informed consent, the patient was brought to the GI suite and placed in the left lateral decubitus position on the examination table. After placement of appropriate monitors, the patient was given incremental doses of Versed and Fentanyl until an appropriate level of sedation was achieved. A time out was held per SCOAP protocol. A digital rectal examination was performed and did not reveal any masses or obstructing lesions. The colonoscope was gently passed into the patient's anus and the entire colon navigated to the level of the cecum with significant difficulty due to colon tortuosity and laxity. Multiple changes of position were required as well as external pressure in order to reach the cecum. Additionally, the prep was noted to be very poor quality with a great deal of solid matter remaining in the colon. Every effort was made to irrigate the materials from the wall, but there was a good deal of solid vegetable matter that we were not able to removed. Once in the cecum, the scope was withdrawn being sure to go before and beyond all mucosal folds and prominences and get an excellent examination. The findings are noted above. At the level of the rectal vault, the scope was retroflexed and the internal anal canal was examined. The scope was straightened and air aspirated from the colon. The instrument was removed from the patient's body and the procedure was concluded. The patient was allowed to awaken from sedation without difficulty and taken to the post-anesthesia care unit in good condition. Complications: other ( Limited examination due to prep quality) Condition: stable Disposition: PACU Plan for aftercare: 1. Discharge to home 2. We will contact you with pathology results 3. Plan to repeat the study in 1 year with stacked preps
[2018-09-27 15:30] VITALS: BP 112/80; PULSE 69; RESP 16; TEMP 36.5; O2SAT 96
[2018-09-27 15:35] VITALS: BP 115/49; PULSE 70; RESP 16; O2SAT 96
[2018-09-27 15:40] VITALS: BP 127/59; PULSE 65; RESP 12; O2SAT 96
[2018-09-27 15:44] VITALS: BP 109/75; PULSE 64; RESP 16; TEMP 36.3; O2SAT 96
[2018-09-27 15:50] VITALS: BP 105/50; PULSE 56; RESP 18; TEMP 36.5; O2SAT 96
== END 2018-09-27 16:10 | disposition home or self-care (01) ==
PROVIDERS: PCP Physician Assistant; Visit Provider Surgery
PROC: 0DJD8ZZ Inspection of Lower Intestinal Tract, Via Natural or Artificial Opening Endoscopic (ICD-10-PCS; CPT 45378; principal; 2018-09-27 15:00)
DX: Z12.11 Encounter for screening for malignant neoplasm of colon (principal); K57.30 Diverticulosis of large intestine without perforation or abscess without bleeding; K62.1 Rectal polyp
CPT/HCPCS: 45380; 88305; J2250; J3010

== ENCOUNTER → 2018-11-15 11:41 | Outpatient (CLI) | payer MEDICARE, OTHER, SELFPAY ==
[2018-11-15 12:36] LABS: Add Manual Diff / Slide Review NO; Basophils Absolute Auto 100 /uL (0-100); Basophils Percent Auto 1.3 % (0-2); Eosinophils Absolute Auto 300 /uL (0-450); Eosinophils Percent Auto 7.1 % (2-4); Hematocrit 41.9 % (36-46); Hemoglobin 14.1 g/dL (12.0-16.0); Lymphocytes Absolute Auto 1500 /uL (1100-4500); Lymphocytes Percent Auto 32.9 % (25-40); Mean Corpuscular HGB Conc 33.6 % (30-36); Mean Corpuscular Hemoglobin 29.6 PG (26-34); Monocytes Absolute Auto 400 /uL (0-900); Monocytes Percent Auto 8.2 % (3-14); Neutrophils Absolute Auto 2200 /uL (1500-7000); Neutrophils Percent Auto 50.5 % (50-75); Platelet Count 160 X10^3/uL (150-400); Red Blood Cell Count 4.76 X10^6/uL (4.0-5.2); White Blood Cell Count 4.4 X10^3/uL (4.5-11.0)
== END ==
PROVIDERS: PCP Physician Assistant; Visit Provider Hospitalist
DX: R10.9 Unspecified abdominal pain (principal)
CPT/HCPCS: 36415; 85025

== ENCOUNTER → 2018-11-17 14:15 | Outpatient (CLI) | payer MEDICARE, OTHER, SELFPAY ==
[2018-11-17 15:55] LABS: Cholesterol 247 mg/dL (140-199); HDL Cholesterol 90 mg/dL (40-60); LDL Cholesterol Calculated 144 mg/dL (<100); Triglycerides 66 mg/dL (35-150)
== END ==
PROVIDERS: PCP Physician Assistant; Visit Provider Physician Assistant
DX: E78.2 Mixed hyperlipidemia (principal)
CPT/HCPCS: 36415; 80061

== ENCOUNTER → 2018-11-29 14:19 | Outpatient (CLI) | payer MEDICARE, OTHER, SELFPAY ==
[2018-11-29 17:07] LABS: BUN Creatinine Ratio 26.7 (6-22); Blood Urea Nitrogen 16 mg/dL (7-17); Calcium 9.9 mg/dL (8.4-10.2); Carbon Dioxide 28 mmol/L (22-32); Chloride 100 mmol/L (98-107); Estimated Glomerular Filt Rate > 60.0 mL/min (>60); Glucose 90 mg/dL (80-110); HEMOLYSIS < 15 (0-50); Potassium 5.1 mmol/L (3.4-5.1); Sodium 138 mmol/L (137-145)
== END ==
PROVIDERS: PCP Physician Assistant; Visit Provider Hospitalist
DX: R53.83 Other fatigue (principal)
CPT/HCPCS: 36415; 80048

== ENCOUNTER → 2019-02-10 09:54 | Outpatient (CLI) | payer MEDICARE, OTHER, SELFPAY ==
[2019-02-10 10:38] LABS: Add Manual Diff / Slide Review NO; Basophils Absolute Auto 100 /uL (0-100); Basophils Percent Auto 1.3 % (0-2); Eosinophils Absolute Auto 300 /uL (0-450); Eosinophils Percent Auto 5.2 % (2-4); Hematocrit 43.5 % (36-46); Hemoglobin 14.7 g/dL (12.0-16.0); Lymphocytes Absolute Auto 1200 /uL (1100-4500); Lymphocytes Percent Auto 24.6 % (25-40); Mean Corpuscular HGB Conc 33.9 % (30-36); Mean Corpuscular Hemoglobin 29.8 PG (26-34); Monocytes Absolute Auto 300 /uL (0-900); Monocytes Percent Auto 6.5 % (3-14); Neutrophils Absolute Auto 3100 /uL (1500-7000); Neutrophils Percent Auto 62.4 % (50-75); Platelet Count 181 X10^3/uL (150-400); Red Blood Cell Count 4.94 X10^6/uL (4.0-5.2); Red Cell Distribution Width 13.3 % (11.6-14.8)
[2019-02-10 10:56] LABS: BUN Creatinine Ratio 28.3 (6-22); Blood Urea Nitrogen 17 mg/dL (7-17); Calcium 9.2 mg/dL (8.4-10.2); Carbon Dioxide 29 mmol/L (22-32); Chloride 100 mmol/L (98-107); Cholesterol 232 mg/dL (140-199); Estimated Glomerular Filt Rate > 60.0 mL/min (>60); Glucose 108 mg/dL (80-110); HDL Cholesterol 89 mg/dL (40-60); HEMOLYSIS < 15 (0-50); LDL Cholesterol Calculated 126 mg/dL (<100); Potassium 3.9 mmol/L (3.4-5.1); Sodium 139 mmol/L (137-145); Triglycerides 85 mg/dL (35-150)
[2019-02-10 11:02] LABS: Erythrocyte Sedimentation Rate 6 MM/HR (0-20)
[2019-02-10 11:47] LABS: Vitamin B12 628 pg/mL (239-931)
[2019-02-10 11:50] LABS: Thyroid Stimulating Hormone 1.73 uIU/mL (0.47-4.68)
== END ==
PROVIDERS: PCP Physician Assistant; Visit Provider Physician Assistant
DX: H35.9 Unspecified retinal disorder (principal); R41.3 Other amnesia; R51 Headache; R53.83 Other fatigue; E78.2 Mixed hyperlipidemia
CPT/HCPCS: 36415; 80048; 80061; 82607; 84443; 85025; 85651

== ENCOUNTER → 2019-02-20 11:42 | Outpatient (CLI) | payer MEDICARE, OTHER, SELFPAY ==
--- NOTE | 2019-02-20 11:44 | DI.US.S_ITS ---
PROCEDURE: US CAROTID DOPPLER BI INDICATIONS: Memory impairment; hearing heartbeat when lying on R TECHNIQUE: Color and pulse Doppler interrogation was performed of both carotid systems, with image documentation and velocity measurements. COMPARISON: [facility]ated [facility], , CAROTID ARTERY DOPPLER BILAT, 09/07/2016, 15:50. FINDINGS: Stenosis calculations are based on SRU (Society of Radiologists in Ultrasound) criteria. Right side: Brachial blood pressure: 142/84 mm Hg. Common carotid artery peak systolic velocity: 72 cm/sec. Internal carotid artery peak systolic velocity: 103 cm/sec. Internal carotid artery end diastolic velocity: 21 cm/sec. External carotid artery peak systolic velocity: 78 cm/sec. ICA/CCA peak systolic ratio: 1.4. Munoz scale imaging description: Moderate scattered plaque. Percent internal carotid artery stenosis: Less than 50%. Vertebral artery: Flow direction is antegrade. Left side: Brachial blood pressure: 141/85 mm Hg. Common carotid artery peak systolic velocity: 81 cm/sec. Internal carotid artery peak systolic velocity: 73 cm/sec. Internal carotid artery end diastolic velocity: 22 cm/sec. External carotid artery peak systolic velocity: 62 cm/sec. ICA/CCA peak systolic ratio: 0.9 Munoz scale imaging description: Heavy scattered plaque. Percent internal carotid artery stenosis: Less than 50%. Vertebral artery: Flow direction is antegrade. IMPRESSION: Less than 50% bilateral internal carotid artery stenosis. Dictated by: Margarito Johnson [facility] Interpreted: Adi Hoyt MD on 02/20/2019 at 13:00 Approved by: Adi Hoyt M.D. on 02/20/2019 at 15:13
--- NOTE | 2019-02-20 11:44 | DI.MRI.S_ITS ---
PROCEDURE: MR HEAD/BRAIN WO/W CON INDICATIONS: Memory impairment; retinal inflammation R eye; headache TECHNIQUE: Noncontrast axial T1 spin echo, axial T2 fast spin echo, sagittal and axial FLAIR, coronal T2 fast spin echo, axial gradient echo, axial diffusion and ADC through the brain. After the administration of contrast, axial and coronal T1 spin echo with fat saturation through the brain. COMPARISON: [facility], , BRAIN WITH AND WITHOUT CONTRAS, 09/15/2006, 17:40. FINDINGS: Image quality: Degraded by technical factors. CSF spaces: Basal cisterns are patent. No extra-axial fluid collections. Ventricles are normal in size and shape. Brain: No midline shift. No acute intracranial bleeds or masses. Within the right posterior max radiata, there is a 10 mm diameter focus of low gradient echo signal intensity, consistent with a cavernoma with chronic surrounding hemorrhagic products. No abnormal intracranial enhancement. There is cerebral volume loss for age. There is periventricular white matter chronic small vessel ischemic change. The brainstem appears normal. Diffusion-weighted images demonstrate no acute ischemic insults. No chronic ischemic insults. Normal intravascular flow voids are present. Skull and face: Calvarial marrow is normal in signal. Orbits appear normal. Sinuses: Moderate left maxillary sinus because of thickening. Sinuses and mastoids otherwise appear clear. IMPRESSION: 1. No acute process. 2. Mild volume loss and small vessel ischemic disease. 3. Left maxillary sinus disease. 4. 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 Dictated by: Marco Johnson M.D. on 02/20/2019 at 15:25 Approved by: Marco Johnson M.D. on 02/20/2019 at 15:28
--- NOTE | 2019-02-20 11:44 | DI.RAD.S_ITS ---
PROCEDURE: XR THORACIC SPINE 3V INDICATIONS: Upper/mid thoracic back pain TECHNIQUE: 3 views of the thoracic spine were acquired. COMPARISON: Cervical spine radiographs 08/25/2018, [facility], , THORACIC SPINE 3 VIEWS, 07/01/2012, 14:54. FINDINGS: Bones: No fractures or dislocations. Multilevel degenerative change in the visualized cervical spine and thoracic spine. This is most pronounced at the T9-T10 and T10-T11 levels where there is intervertebral space height loss and endplate sclerosis. No compression fractures. No suspicious bony lesions. Cervical spine fixation hardware spanning C3-T3. No periscrew lucency identified. 12 pairs of ribs are noted, and appear intact where visualized. Minimal scoliosis. Soft tissues: No paravertebral stripe thickening. Visualized portions of the chest appear clear. Cholecystectomy clips. IMPRESSION: No acute osseous abnormality. Multilevel degenerative change in the cervical and thoracic spine. Dictated by: Kam Fuchs M.D. on 02/20/2019 at 13:43 Approved by: Kam Fuchs M.D. on 02/20/2019 at 13:47
== END ==
PROVIDERS: PCP Physician Assistant; Visit Provider Physician Assistant
DX: H35.9 Unspecified retinal disorder (principal); R41.3 Other amnesia; R53.83 Other fatigue; R51 Headache; M54.6 Pain in thoracic spine; J32.0 Chronic maxillary sinusitis; M47.812 Spondylosis without myelopathy or radiculopathy, cervical region; M47.814 Spondylosis without myelopathy or radiculopathy, thoracic region
CPT/HCPCS: 70553; 72072; 93880; A9579

== ENCOUNTER → 2019-06-07 14:32 | Outpatient (CLI) | payer MEDICARE, OTHER, SELFPAY | PROVIDERS: PCP Physician Assistant; Visit Provider Physician Assistant | DX: M85.852 Other specified disorders of bone density and structure, left thigh (principal); Z78.0 Asymptomatic menopausal state; Z82.62 Family history of osteoporosis; Z90.722 Acquired absence of ovaries, bilateral | CPT/HCPCS: 77080 ==

== ENCOUNTER → 2019-08-14 10:49 | Outpatient (CLI) | payer MEDICARE, OTHER, SELFPAY ==
[2019-08-14 11:16] LABS: Add Manual Diff / Slide Review NO; Basophils Absolute Auto 100 /uL (0-100); Basophils Percent Auto 2.2 % (0-2); Eosinophils Absolute Auto 400 /uL (0-450); Eosinophils Percent Auto 8.9 % (2-4); Hematocrit 42.2 % (36-46); Hemoglobin 14.1 g/dL (12.0-16.0); Lymphocytes Absolute Auto 1500 /uL (1100-4500); Lymphocytes Percent Auto 33.9 % (25-40); Mean Corpuscular HGB Conc 33.5 % (30-36); Mean Corpuscular Hemoglobin 29.7 PG (26-34); Mean Corpuscular Volume 88.7 fL (80-100); Monocytes Absolute Auto 400 /uL (0-900); Monocytes Percent Auto 9.4 % (3-14); Neutrophils Absolute Auto 2000 /uL (1500-7000); Neutrophils Percent Auto 45.6 % (50-75); Platelet Count 156 X10^3/uL (150-400); Red Blood Cell Count 4.76 X10^6/uL (4.0-5.2); Red Cell Distribution Width 13.3 % (11.6-14.8); White Blood Cell Count 4.3 X10^3/uL (4.5-11.0)
[2019-08-14 11:28] LABS: Alanine Aminotransferase 17 IU/L (<35); Albumin 4.5 g/dL (3.5-5.0); Albumin Globulin Ratio 1.5 (1.0-2.8); Alkaline Phosphatase 63 U/L (38-126); Aspartate Aminotransferase 26 IU/L (14-36); Bilirubin Total 0.5 mg/dL (0.2-1.3); Blood Urea Nitrogen 15 mg/dL (7-17); Calcium 9.4 mg/dL (8.4-10.2); Carbon Dioxide 29 mmol/L (22-32); Chloride 104 mmol/L (98-107); Cholesterol 223 mg/dL (140-199); Estimated Glomerular Filt Rate > 60.0 mL/min (>60); Glucose 110 mg/dL (80-110); HDL Cholesterol 72 mg/dL (40-60); HEMOLYSIS < 15 (0-50); LDL Cholesterol Calculated 141 mg/dL (<100); Potassium 3.9 mmol/L (3.4-5.1); Sodium 142 mmol/L (137-145); Total Protein 7.5 g/dL (6.3-8.2); Triglycerides 50 mg/dL (35-150)
== END ==
PROVIDERS: PCP Physician Assistant; Referring Provider Physician Assistant; Visit Provider Physician Assistant
DX: R53.83 Other fatigue (principal)
CPT/HCPCS: 36415; 80053; 80061; 85025

== ENCOUNTER → 2019-08-22 09:28 | Outpatient (CLI) | payer MEDICARE, OTHER, SELFPAY ==
--- NOTE | 2019-08-22 09:30 | DI.RAD.S_ITS ---
PROCEDURE: XR CHEST 2V INDICATIONS: Chest discomfort TECHNIQUE: 2 views of the chest were acquired. COMPARISON: [facility], CR, XR CHEST 2V, 07/19/2018, 15:06. FINDINGS: Surgical changes and devices: Cervical thoracic fixation rods are present. Lungs and pleura: Lungs are clear. No pleural effusions or pneumothorax. Mediastinum: Mediastinal contours are normal. Heart size is normal. Bones and chest wall: No suspicious bony abnormalities. Soft tissues appear unremarkable. IMPRESSION: No acute pulmonary process. Dictated by: Mary Tirado M.D. on 08/22/2019 at 10:31 Approved by: Mary Tirado M.D. on 08/22/2019 at 10:31
== END ==
PROVIDERS: PCP Family Medicine; Referring Provider Family Medicine; Visit Provider Family Medicine
DX: R07.89 Other chest pain (principal)
CPT/HCPCS: 71046

== ENCOUNTER 2019-11-09 12:56 | Emergency (ER) | payer MEDICARE, OTHER, SELFPAY ==
[2019-11-09 13:02] VITALS: BP 136/72; PULSE 65; RESP 16; TEMP 36.7; O2SAT 99; BMI 20.7
[2019-11-09 13:35] LABS: Add Manual Diff / Slide Review NO; Basophils Absolute Auto 100 /uL (0-100); Basophils Percent Auto 1.2 % (0-2); Eosinophils Absolute Auto 500 /uL (0-450); Eosinophils Percent Auto 8.4 % (2-4); Hematocrit 43.8 % (36-46); Hemoglobin 14.7 g/dL (12.0-16.0); Lymphocytes Absolute Auto 1800 /uL (1100-4500); Lymphocytes Percent Auto 31.6 % (25-40); Mean Corpuscular HGB Conc 33.5 % (30-36); Mean Corpuscular Hemoglobin 29.2 PG (26-34); Mean Corpuscular Volume 87.3 fL (80-100); Monocytes Absolute Auto 400 /uL (0-900); Monocytes Percent Auto 7.9 % (3-14); Neutrophils Absolute Auto 2900 /uL (1500-7000); Neutrophils Percent Auto 50.9 % (50-75); Platelet Count 176 X10^3/uL (150-400); Red Blood Cell Count 5.02 X10^6/uL (4.0-5.2); Red Cell Distribution Width 14.7 % (11.6-14.8); White Blood Cell Count 5.6 X10^3/uL (4.5-11.0)
[2019-11-09 13:47] LABS: INR 1.1 (0.9-1.3); Prothrombin Time 12.6 SECONDS (10.1-12.7)
[2019-11-09 13:49] LABS: PTT Partial Thromboplastin Tim 36 SECONDS (26.4-36.2)
[2019-11-09 13:55] VITALS: BP 134/68; PULSE 64; RESP 14; O2SAT 100
[2019-11-09 13:58] LABS: Alanine Aminotransferase 47 IU/L (<35); Albumin 4.8 g/dL (3.5-5.0); Albumin Globulin Ratio 1.4 (1.0-2.8); Alkaline Phosphatase 82 U/L (38-126); Aspartate Aminotransferase 49 IU/L (14-36); BUN Creatinine Ratio 25.8 (6-22); Bilirubin Total 0.4 mg/dL (0.2-1.3); Blood Urea Nitrogen 16 mg/dL (7-17); Calcium 9.6 mg/dL (8.4-10.2); Carbon Dioxide 29 mmol/L (22-32); Chloride 99 mmol/L (98-107); Estimated Glomerular Filt Rate > 60.0 mL/min (>60); Globulin 3.4 g/dL (1.7-4.1); Glucose 108 mg/dL (80-110); HEMOLYSIS 32 (0-50); Potassium 4.4 mmol/L (3.4-5.1); Sodium 137 mmol/L (137-145); Total Protein 8.2 g/dL (6.3-8.2)
[2019-11-09 13:59] LABS: Lipase 158 U/L (23-300)
--- NOTE | 2019-11-09 14:28 | ED_ITS ---
HPI - GI Bleed <ANUSHKA Martinez - Last Filed: 11/09/19 15:23> General Chief complaint: GI Bleed Stated complaint: Blood in Stool Time Seen by Provider: 11/09/19 13:01 Source: patient Mode of arrival: Ambulatory Limitations: no limitations History of Present Illness HPI Narrative: This is a 74 year female, former smoker, who has significant chronic illness such as spine surgery, cholecystectomy, degenerative joint disease who presents to ED with significant other with chief complain of blood in stool for 2 weeks. She has bowel movement once a day. Patient denies chest pain, dyspnea, short of breath for reports lightheadedness. Patient currently is not taking anticoagulants including aspirin or NSAIDS. Patient reports has seen bright red color mixed in stool and it turns to light pink when she flushes. She states has history of hemorrhoids but is not active now. Denies fever, chills, nausea or vomiting. Reports has been feeling gassy and mild discomfort in lower abdomen. Patient completed taking amoxicillin 1 week ago for 10 day course due to dental infection. Patient denies diarrhea or loose stools and states perfect consistency and formed. Patient denies history of colon cancer, changing in stool caliberation, changing in diet. Reports last colonoscopy was 6 years ago with normal report without polyps. Reports her father passed with colon, gallbladder, liver cancer at age 78. However, she states has been eating lots of beet chips. Patient had traveled to [facility] in [facility] and did not have problem when she returned to home months ago. Patient states no other family member has similar symptoms. Patient reports she and her grandkids and daughter were sick with flu and pneumonia a no GI symptoms. Patient denies urinary symptoms including urgency, frequency, dysuria, hematuria. Patient also reports occasional sharp vaginal discomfort for last 2 weeks. Related Data Home Medications Medication Instructions Recorded Confirmed docusate sodium 100 mg capsule 100 mg PO BID PRN cap 12/29/18 09/13/19 gabapentin 300 mg capsule 600 mg PO BID cap 02/23/19 09/13/19 Previous Rx's Medication Instructions Recorded tretinoin 0.05 % topical cream 1 applictn TOP BEDTIME #45 gram 10/24/18 tramadol 50 mg tablet 100 mg PO BID PRN #120 tab 05/16/19 meloxicam 7.5 mg tablet 7.5 mg PO BID PRN #60 tab 07/06/19 albuterol sulfate 90 mcg/actuation 2 puff INHALATION QID PRN #8.5 gram 08/22/19 aerosol inhaler fluticasone propionate 115 2 puff INHALATION BID #12 gram 09/13/19 mcg-salmeterol 21 mcg/actuation HFA inhaler methylprednisolone 4 mg tablets in See Rx Instructions PO PER PKG DIR 09/13/19 a dose pack #21 each Allergies Allergy/AdvReac Type Severity Reaction Status Date / Time No Known Drug Allergies Allergy Verified 11/09/19 13:02 Review of Systems <ANUSHKA Martinez - Last Filed: 11/09/19 15:23> Review of Systems Narrative: General: Denies fever, chills, fatigue, malaise, sweats. HEENT: Denies sinus pain, ear pain, sore throat, difficulty swallowing, dizziness. Respiratory: Denies dyspnea, cough, wheezing, hemoptysis, sputum. Cardiovascular: Denies chest pain, palpitations, orthopnea, edema, (+) lightheadedness. Gastrointestinal: See HPI : Denies dysuria, frequency, incontinence, hematuria, urinary retention. Musculoskeletal: Denies weakness, joint pain or bony pain. Skin: Denies rash, skin lesions, or other. Neurologic: Denies weakness, headache, numbness, change in speech, confusion, seizures, incoordination. Psychiatric: No concerning psychosocial issues. 12-point review of systems is negative except for those stated above. Patient History <ANUSHKA Martinez - Last Filed: 11/09/19 15:23> Medical History Reactive airway disease (Acute) Surgical History History of breast augmentation History of carpal tunnel repair History of spinal fusion History of tonsillectomy Status post appendectomy Status post discectomy Status post hemorrhoidectomy Status post hysterectomy with oophorectomy Social History household members: spouse Smoking Status: Never smoker second hand exposure: Yes (My parents and grandparents smoked) alcohol intake: never substance use type: does not use Smoking Status: Never smoker alcohol intake frequency: 0-2 drinks per day Substance Use Type: does not use Exam <Enrico ANUSHKA Cao - Last Filed: 11/09/19 15:23> Narrative Exam Narrative: GEN: Alert, oriented x 3, well and thin appearing, and in no acute distress. Head: Normal cephalic, atraumatic. No scalp or temporal tenderness, palpable mass or rash. EYES: Pupils are equal, round, and reactive to light and accommodation. Extraocular muscles are intact bilaterally. There is no subconjunctival hemorrhage, exudate and sclera non-icteric and palpebral conjunctiva pink. ENT: Hearing grossly intact. Nose without bleeding, purulent discharge or deviation. Mucous membrane moist, no mucosal lesion. Throat without erythema, tonsillar hypertrophy or exudate. Uvula in midline, airway patent. Neck: Trachea in midline. No JVD, non-tender without lymphadenopathy. No masses or thyroid megaly. Supple, non-tender and no meningeal signs. CARDIAC: Normal regular rate and rhythm without murmurs, gallops, or rubs. No chest wall tenderness. No peripheral edema, cyanosis or pallor. Capillary refill is less than 2 seconds. RESPIRATORY: Lungs are clear to auscultate bilaterally. No cough, wheezes, rales, or rhonchi. No stridor, respiratory distress, increase work of breathing, or accessary muscle used. ABD: Abdomen soft and non-distended. Very mild tenderness to palpate in bilateral lower abdomen. No guarding or rebound tenderness to palpate. Bowel sounds are normal in all 4 quadrants. There is no palpable masses or organomegaly. EXT: Full painless ROM of all extremities with no loss of sensation, strength, effusion or edema. SKIN: Warm, dry, normal color for patient. No erythema, lesions or rash over visible areas. BACK: Nontender without deformity or crepitance. No flank tenderness. NEUROLOGICAL: Alert and oriented to place, time and person. Sensation and motor function intact bilaterally. No facial droops, dysphasia. PSYCHIATRIC: Good judgement and reason, without hallucinations, abnormal affect or abnormal behaviors during the examination. Initial Vital Signs Initial Vital Signs: Vital Signs Temperature 98.0 F 11/09/19 13:02 Pulse Rate 65 11/09/19 13:02 Respiratory Rate 16 11/09/19 13:02 Blood Pressure 136/72 11/09/19 13:02 Pulse Oximetry 99 11/09/19 13:02 <Albertina Thompson DO - Last Filed: 11/09/19 17:13> Initial Vital Signs Initial Vital Signs: Vital Signs Temperature 98.0 F 11/09/19 13:02 Pulse Rate 65 11/09/19 13:02 Respiratory Rate 16 11/09/19 13:02 Blood Pressure 136/72 11/09/19 13:02 Pulse Oximetry 99 11/09/19 13:02 Scores <Enrico TalTIFFANIE shanksP - Last Filed: 11/09/19 15:23> GCS [place] coma scale eye opening: Spontaneous [place] coma scale verbal response: Orientated Rhoda coma scale motor response: Obey commands Rhoda coma scale total score: 15 Course <Enrico IsakTIFFANIE WangP - Last Filed: 11/09/19 15:23> Orders Ordered: ED Orders 11/09/19 13:32 Complete Blood Count AUTO DIFF Stat Comprehensive Metabolic Panel Stat Lipase Stat Partial Thromboplastin Time Stat Prothrombin Time INR Stat Type and Screen Stat Vital Signs Vital signs: Vital Signs - 8 hr 11/09/19 13:02 11/09/19 13:55 Temperature 98.0 F Pulse Rate 65 64 Respiratory Rate 16 14 Blood Pressure 136/72 Blood Pressure [Right Arm] 134/68 Pulse Oximetry 99 100 <Albertinaanne-marie ThompsonDO - Last Filed: 11/09/19 17:13> Orders Ordered: ED Orders 11/09/19 13:32 Complete Blood Count AUTO DIFF Stat Comprehensive Metabolic Panel Stat Lipase Stat Partial Thromboplastin Time Stat Prothrombin Time INR Stat Type and Screen Stat Vital Signs Vital signs: Vital Signs - 8 hr 11/09/19 13:02 11/09/19 13:55 Temperature 98.0 F Pulse Rate 65 64 Respiratory Rate 16 14 Blood Pressure 136/72 Blood Pressure [Right Arm] 134/68 Pulse Oximetry 99 100 MDM - GI Bleed <Enrico Israel-CedricTIFFANIE shanksP - Last Filed: 11/09/19 15:23> Differential Diagnosis Differential diagnosis: Likely hemorrhoids, Upper gastrointestinal hemorrhage, Lower gastrointestinal hemorrhage, anal fissure and other (Diverticulosis, diverticulitis, GI polyps, mass) Medical Records Attestation: I reviewed the patient's medical records. Lab Data Attestation: I reviewed the patient's lab results. Result diagrams: 11/09/19 13:32 11/09/19 13:32 Labs: Lab Results 11/09/19 11/09/19 11/09/19 Range/Units 13:32 13:32 13:32 WBC 5.6 (4.5-11.0) X10^3/uL RBC 5.02 (4.0-5.2) X10^6/uL Hgb 14.7 (12.0-16.0) g/dL Hct 43.8 (36-46) % MCV 87.3 (80-100) fL MCH 29.2 (26-34) PG MCHC 33.5 (30-36) % RDW 14.7 (11.6-14.8) % Plt Count 176 (150-400) X10^3/uL Neut % (Auto) 50.9 (50-75) % Lymph % (Auto) 31.6 (25-40) % [place] % (Auto) 7.9 (3-14) % Eos % (Auto) 8.4 H (2-4) % Baso % (Auto) 1.2 (0-2) % Neut # (Auto) 2900 (9481-0367) /uL Lymph # (Auto) 1800 (9077-6770) /uL [place] # (Auto) 400 (0-900) /uL Eos # (Auto) 500 H (0-450) /uL Baso # (Auto) 100 (0-100) /uL PT 12.6 (10.1-12.7) SECONDS INR 1.1 (0.9-1.3) APTT 36 (26.4-36.2) SECONDS Sodium 137 (137-145) mmol/L Potassium 4.4 (3.4-5.1) mmol/L Chloride 99 (98-107) mmol/L Carbon Dioxide 29 (22-32) mmol/L BUN 16 (7-17) mg/dL Creatinine 0.62 (0.52-1.04) mg/dL Estimated GFR > 60.0 (>60) mL/min BUN/Creatinine Ratio 25.8 H (6-22) Glucose 108 (80-110) mg/dL Calcium 9.6 (8.4-10.2) mg/dL Total Bilirubin 0.4 (0.2-1.3) mg/dL AST 49 H (14-36) IU/L ALT 47 H (<35) IU/L Alkaline Phosphatase 82 (38-126) U/L Total Protein 8.2 (6.3-8.2) g/dL Albumin 4.8 (3.5-5.0) g/dL Globulin 3.4 (1.7-4.1) g/dL Albumin/Globulin Ratio 1.4 (1.0-2.8) Lipase (23-300) U/L Blood Type Antibody Screen 11/09/19 11/09/19 Range/Units 13:32 13:32 WBC (4.5-11.0) X10^3/uL RBC (4.0-5.2) X10^6/uL Hgb (12.0-16.0) g/dL Hct (36-46) % MCV (80-100) fL MCH (26-34) PG MCHC (30-36) % RDW (11.6-14.8) % Plt Count (150-400) X10^3/uL Neut % (Auto) (50-75) % Lymph % (Auto) (25-40) % [place] % (Auto) (3-14) % Eos % (Auto) (2-4) % Baso % (Auto) (0-2) % Neut # (Auto) (1533-9941) /uL Lymph # (Auto) (2738-5013) /uL [place] # (Auto) (0-900) /uL Eos # (Auto) (0-450) /uL Baso # (Auto) (0-100) /uL PT (10.1-12.7) SECONDS INR (0.9-1.3) APTT (26.4-36.2) SECONDS Sodium (137-145) mmol/L Potassium (3.4-5.1) mmol/L Chloride (98-107) mmol/L Carbon Dioxide (22-32) mmol/L BUN (7-17) mg/dL Creatinine (0.52-1.04) mg/dL Estimated GFR (>60) mL/min BUN/Creatinine Ratio (6-22) Glucose (80-110) mg/dL Calcium (8.4-10.2) mg/dL Total Bilirubin (0.2-1.3) mg/dL AST (14-36) IU/L ALT (<35) IU/L Alkaline Phosphatase (38-126) U/L Total Protein (6.3-8.2) g/dL Albumin (3.5-5.0) g/dL Globulin (1.7-4.1) g/dL Albumin/Globulin Ratio (1.0-2.8) Lipase 158 (23-300) U/L Blood Type A Positive Antibody Screen Negative Point of Care Testing Stool Occult Blood Negative MDM Narrative Medical decision making narrative: This is a 74 year female who presents to ED with bright red rectal bleeding for last 2 weeks once a day during bowel movemen ts only with mild low abdominal discomfort and feeling gassy. Patient denies chest pain, dyspnea but some dizziness. Patient completed antibiotic medication about a week ago for 10 day course amoxicillin but denies loose stools or diarrhea. Stool Hemoccult was negative from the specimen that patient brought from this morning which was formed and soft. Abdominal physical exam is benign with very mild tenderness to palpate in bilateral lower quadrants. Patient denies constitutional symptoms. Today's H&H is stable. No leukocytosis. Chemistry tests were unremarkable with mildly elevated liver function test. Patient is afebrile with normal limit vital signs. Patient ambulates in stable gait. I discussed with the patient on lab findings which were assuring. Patient elected not to have CT test of abdomen and pelvis at this time. Patient advised to follow-up with primary care physician if she continues to see the stool in red color for possible colonoscopy test. Strict return precautions were discussed with the patient and patient verbalized understanding in agreement with treatment plan. <Albertina Thompson, DO - Last Filed: 11/09/19 17:13> Lab Data Labs: Lab Results 11/09/19 11/09/19 11/09/19 Range/Units 13:32 13:32 13:32 WBC 5.6 (4.5-11.0) X10^3/uL RBC 5.02 (4.0-5.2) X10^6/uL Hgb 14.7 (12.0-16.0) g/dL Hct 43.8 (36-46) % MCV 87.3 (80-100) fL MCH 29.2 (26-34) PG MCHC 33.5 (30-36) % RDW 14.7 (11.6-14.8) % Plt Count 176 (150-400) X10^3/uL Neut % (Auto) 50.9 (50-75) % Lymph % (Auto) 31.6 (25-40) % [place] % (Auto) 7.9 (3-14) % Eos % (Auto) 8.4 H (2-4) % Baso % (Auto) 1.2 (0-2) % Neut # (Auto) 2900 (0850-9431) /uL Lymph # (Auto) 1800 (5428-7482) /uL [place] # (Auto) 400 (0-900) /uL Eos # (Auto) 500 H (0-450) /uL Baso # (Auto) 100 (0-100) /uL PT 12.6 (10.1-12.7) SECONDS INR 1.1 (0.9-1.3) APTT 36 (26.4-36.2) SECONDS Sodium 137 (137-145) mmol/L Potassium 4.4 (3.4-5.1) mmol/L Chloride 99 (98-107) mmol/L Carbon Dioxide 29 (22-32) mmol/L BUN 16 (7-17) mg/dL Creatinine 0.62 (0.52-1.04) mg/dL Estimated GFR > 60.0 (>60) mL/min BUN/Creatinine Ratio 25.8 H (6-22) Glucose 108 (80-110) mg/dL Calcium 9.6 (8.4-10.2) mg/dL Total Bilirubin 0.4 (0.2-1.3) mg/dL AST 49 H (14-36) IU/L ALT 47 H (<35) IU/L Alkaline Phosphatase 82 (38-126) U/L Total Protein 8.2 (6.3-8.2) g/dL Albumin 4.8 (3.5-5.0) g/dL Globulin 3.4 (1.7-4.1) g/dL Albumin/Globulin Ratio 1.4 (1.0-2.8) Lipase (23-300) U/L Blood Type Antibody Screen 11/09/19 11/09/19 Range/Units 13:32 13:32 WBC (4.5-11.0) X10^3/uL RBC (4.0-5.2) X10^6/uL Hgb (12.0-16.0) g/dL Hct (36-46) % MCV (80-100) fL MCH (26-34) PG MCHC (30-36) % RDW (11.6-14.8) % Plt Count (150-400) X10^3/uL Neut % (Auto) (50-75) % Lymph % (Auto) (25-40) % [place] % (Auto) (3-14) % Eos % (Auto) (2-4) % Baso % (Auto) (0-2) % Neut # (Auto) (8210-7322) /uL Lymph # (Auto) (1373-4637) /uL [place] # (Auto) (0-900) /uL Eos # (Auto) (0-450) /uL Baso # (Auto) (0-100) /uL PT (10.1-12.7) SECONDS INR (0.9-1.3) APTT (26.4-36.2) SECONDS Sodium (137-145) mmol/L Potassium (3.4-5.1) mmol/L Chloride (98-107) mmol/L Carbon Dioxide (22-32) mmol/L BUN (7-17) mg/dL Creatinine (0.52-1.04) mg/dL Estimated GFR (>60) mL/min BUN/Creatinine Ratio (6-22) Glucose (80-110) mg/dL Calcium (8.4-10.2) mg/dL Total Bilirubin (0.2-1.3) mg/dL AST (14-36) IU/L ALT (<35) IU/L Alkaline Phosphatase (38-126) U/L Total Protein (6.3-8.2) g/dL Albumin (3.5-5.0) g/dL Globulin (1.7-4.1) g/dL Albumin/Globulin Ratio (1.0-2.8) Lipase 158 (23-300) U/L Blood Type A Positive Antibody Screen Negative Point of Care Testing Stool Occult Blood Negative Discharge Plan Departure Patient Disposition: Home Clinical Impression: Dark stools, Elevated liver enzymes Abdominal pain Qualifiers: Abdominal location: lower abdomen, unspecified Qualified Code(s): R10.30 - Lower abdominal pain, unspecified Discharge Date/Time: 11/09/19 14:44 Instructions: DI for Abdominal Pain-Adult, Gastrointestinal Bleeding Activity Restrictions/Additional Instructions: You have been diagnosed with [mild lower abdominal discomfort, dark stool, mildly elevated liver enzymes. The formed stool you brought in to ED today did not show occult blood. Stable blood counts without elevated in WBC. Unremarkable chemistry test except very mildly elevated AST and ALT (liver function test). Your abdominal physical exam was benign. We deferred CT test of abdomen and pelvis today.]. What to do: *Take your medications as directed. Please consider taking probiotics that you have at home since you recently had completed antibiotic medication for dental problem. *Follow up with your primary care provider in 2-3 days, call for an appointment. Let them know you were seen in the ED and that we asked you to be seen in follow up. If bleeding from her rectum or GI system recurs, you may need colonoscopy that can be scheduled outpatiently. *Return to ED if you have any new, worsening, or concerning symptoms, such as [chest pain, breathing difficulty, feeling like fainting, increasing rectal bleeding-bright red blood, tarry stool, black stool, worsening pain, fever or any acute concerns]. Prescriptions: No Action gabapentin [Neurontin] 300 mg capsule 600 mg PO BID RF: 0 tramadol 50 mg tablet 100 mg PO BID PRN (Reason: pain) Qty: 120 RF: 3 meloxicam 7.5 mg tablet 7.5 mg PO BID PRN (Reason: pain) Qty: 60 RF: 1 methylprednisolone [Medrol (Giovany)] 4 mg tablets,dose pack See Rx Instructions PO PER PKG DIR Qty: 21 RF: 0 Advair HFA 115-21 mcg/actuation HFA aerosol inhaler 2 puff INHALATION BID Qty: 12 RF: 1 tretinoin 0.05 % cream 1 applictn TOP BEDTIME Qty: 45 RF: 3 docusate sodium [Col-Rite] 100 mg capsule 100 mg PO BID PRNRF: 0 albuterol sulfate [ProAir HFA] 90 mcg/actuation HFA aerosol inhaler 2 puff INHALATION QID PRN (Reason: shortness of breath) Qty: 8.5 RF: 0 Referrals: Mansoor Costa, [Primary Care Provider] -
== END 2019-11-09 14:44 | disposition home or self-care (01) ==
PROVIDERS: Emergency Provider Nurse Practitioner Family; PCP Family Medicine
DX: R19.5 Other fecal abnormalities (principal); R10.30 Lower abdominal pain, unspecified; R74.8 Abnormal levels of other serum enzymes
CPT/HCPCS: 36415; 80053; 82272; 83690; 85025; 85610; 85730; 86850; 86900; 86901; 99283; 99284

== ENCOUNTER → 2019-11-20 10:29 | Outpatient (CLI) | payer MEDICARE, OTHER, SELFPAY ==
--- NOTE | 2019-11-20 11:04 | DI.RAD.S_ITS ---
PROCEDURE: XR WRIST RT MIN 3V INDICATIONS: Status post fall discomfort distal wrist TECHNIQUE: 4 views of the wrist were acquired. COMPARISON: None. FINDINGS: Bones: No fractures or dislocations. No suspicious bony lesions. Degenerative changes are seen, particularly involving the radial aspect of the carpus and the 1st carpometacarpal joint. There is moderate narrowing seen involving the radiocarpal interface. Scaphoid view: Demonstrates no significant CT abnormality Soft tissues: No suspicious soft tissue calcifications. IMPRESSION: Relatively prominent bony degenerative changes are seen. If it would be helpful for clinical management decision making, please consider a dedicated wrist MRI for further evaluation (assuming that there is no contraindication). If there is strong clinical concern for a ligamentous abnormality, this should be performed according to the MR arthrogram protocol. Dictated by: Yassine Garcia M.D. on 11/20/2019 at 11:21 Approved by: Yassine Garcia M.D. on 11/20/2019 at 11:22
[2019-11-20 11:13] LABS: Add Manual Diff / Slide Review NO; Basophils Absolute Auto 100 /uL (0-100); Basophils Percent Auto 1.1 % (0-2); Eosinophils Absolute Auto 400 /uL (0-450); Eosinophils Percent Auto 8.7 % (2-4); Hematocrit 41.4 % (36-46); Hemoglobin 14.1 g/dL (12.0-16.0); Lymphocytes Absolute Auto 1400 /uL (1100-4500); Lymphocytes Percent Auto 28.2 % (25-40); Mean Corpuscular Hemoglobin 29.6 PG (26-34); Mean Corpuscular Volume 87.1 fL (80-100); Monocytes Absolute Auto 400 /uL (0-900); Monocytes Percent Auto 7.8 % (3-14); Neutrophils Absolute Auto 2600 /uL (1500-7000); Neutrophils Percent Auto 54.2 % (50-75); Platelet Count 168 X10^3/uL (150-400); Red Blood Cell Count 4.76 X10^6/uL (4.0-5.2); Red Cell Distribution Width 14.7 % (11.6-14.8); White Blood Cell Count 4.8 X10^3/uL (4.5-11.0)
[2019-11-20 11:27] LABS: Alanine Aminotransferase 21 IU/L (<35); Albumin 4.5 g/dL (3.5-5.0); Albumin Globulin Ratio 1.5 (1.0-2.8); Alkaline Phosphatase 70 U/L (38-126); Aspartate Aminotransferase 30 IU/L (14-36); BUN Creatinine Ratio 21.2 (6-22); Bilirubin Total 0.3 mg/dL (0.2-1.3); Blood Urea Nitrogen 14 mg/dL (7-17); Calcium 9.5 mg/dL (8.4-10.2); Carbon Dioxide 26 mmol/L (22-32); Chloride 108 mmol/L (98-107); Estimated Glomerular Filt Rate > 60.0 mL/min (>60); Globulin 3.1 g/dL (1.7-4.1); Glucose 103 mg/dL (80-110); HEMOLYSIS < 15 (0-50); Potassium 4.5 mmol/L (3.4-5.1); Sodium 141 mmol/L (137-145); Total Protein 7.6 g/dL (6.3-8.2)
[2019-11-20 11:59] LABS: Vitamin D 25 Hydroxy (D3) 35.7 ng/mL (30.0-100.0)
[2019-11-20 12:13] LABS: Thyroid Stimulating Hormone 2.27 uIU/mL (0.47-4.68)
[2019-11-20 12:14] LABS: Vitamin B12 Reflex MMA if <400 669 pg/mL (239-931)
[2019-11-23 09:56] LABS: Vit B12 Binding Capacity unsat 974 pg/mL (725-2045)
== END ==
PROVIDERS: PCP Family Medicine; Referring Provider Family Medicine; Visit Provider Family Medicine
DX: M25.531 Pain in right wrist (principal); R53.83 Other fatigue
CPT/HCPCS: 36415; 73110; 80053; 82306; 82607; 82608; 84443; 85025

== ENCOUNTER → 2019-11-24 12:06 | Outpatient (CLI) | payer MEDICARE, OTHER, SELFPAY ==
--- NOTE | 2019-11-24 13:18 | P.PCN_ITS ---
Cardiac Stress Test Report Referral & Results Date Patient Seen: 11/24/19 Time Patient Seen: 13:00 Requesting provider: Mansoor Costa Indication: Progressive fatigue Rest ECG: Occasional PAC Procedure Note: Today following both written and verbal informed consent, the patient was exercised according to a standard Luigi protocol. The patient e xercised for a total of 10 minutes 40 seconds achieving a maximum heart rate of 148. Patient's maximum systolic blood pressure was 170. This was an estimated 12.8 METs. Oxygen saturation 95% at peak exercise. Normal hemodynamic response to exercise. Excellent exercise capacity (< 30% ANDRZEJ). No signs or symptoms of angina. Diffuse ST deviations in multiple leads that resolved rapidly with rest. Occasional PACs/PVCs that increased in frequency with exercise, and resolved with rest. Impression: Low probability for ischemia. Andrea treadmill score of five is correlated with 97% 5 year survival rate from cardiovascular mortality. Please note: Actual ECG tracings can be found in the PACS system.
== END ==
PROVIDERS: PCP Family Medicine; Referring Provider Family Medicine; Visit Provider Family Medicine
DX: R06.00 Dyspnea, unspecified (principal); R53.83 Other fatigue
CPT/HCPCS: 93016; 93017; 93018

== ENCOUNTER → 2020-04-02 08:53 | Outpatient (CLI) | payer MEDICARE, OTHER, SELFPAY ==
[2020-04-03 09:50] LABS: COVID19 Sendout Not Detected (Not Detect)
== END ==
PROVIDERS: PCP Family Medicine; Visit Provider Physician Assistant
DX: Z11.59 Encounter for screening for other viral diseases (principal)
CPT/HCPCS: 87635

== ENCOUNTER 2020-04-05 08:59 | Day surgery (SDC) | payer MEDICARE, OTHER, SELFPAY ==
--- NOTE | 2020-04-05 | PATH_ITS ---
[facility] Accession Number: [id number] . 01 Material submitted: . rectum - RECTAL POLYP . 01 Clinical history: . A: POLYP X2 . 02 Diagnosis: Rectum, Polyps x2, Biopsies: Hyperplastic polyps. MRV 04/08/2020 1041 Local . 02 Electronically signed: . Tiffanie Shetty MD, Pathologist NPI- [id number] . 01 Gross description: . The specimen is received in formalin, labeled polyp rectal x2, and consists of two urias-pink fragments of soft tissue measuring 0.4 x 0.3 x 0.2 cm in aggregate. The specimen is entirely submitted in cassette A1. ([id number]) /FRR 04/06/2020 1524 Local . 02 Pathologist provided ICD-10: K62.1 . 02 CPT . 372355 Performed at: 01 [facility] [address] [facility], [place], [place] [id number] MD Rajesh Carroll MD Phone: [phone] Performed at: 02 [facility] [address] [place], [place] [id number] MD Tiffanie Shetty MD Phone: [phone]
[2020-04-05 09:24] VITALS: BP 119/74; PULSE 66; RESP 16; TEMP 37; O2SAT 100; BMI 19.5
[2020-04-05] MEDS: SODIUM CHLORIDE 0.9% 1,000 ML 200 ML IV (09:24)
--- NOTE | 2020-04-05 10:02 | PM.HP.1 ---
History of Present Illness History of Present Illness Date Patient Seen: 04/05/20 Time Patient Seen: 10:02 Chief complaint: SCREENING COLONOSCOPY Narrative: This is a 74-year-old woman who presents for screening colonoscopy. She had a colonoscopy [address] Pruitt, but the scope was not passable due to poor prep. She was recommended to have a repeat colonoscopy in 1 year. Prior to that her last colonoscopy was 10 years ago and was completely normal. She denies any new problems or symptoms related to the function of her GI tract. She reports she has colonoscopy as per the health maintenance program. She denies any pain today. She does have an extensive surgical history but says she feels well. ROS: Neck pain and immobility. Thirteen system review is otherwise negative other than as mentioned below and in HPI. PE: GENERAL: Well groomed and cooperative. Appears stated age. Answers questions promptly and appropriately. Vital signs noted. HENT: Normocephalic, atraumatic. Hearing intact. EYES: Conjunctiva pink, sclera white, no periorbital swelling. CARDIOVASCULAR: Regular rate. No pedal edema. RESPIRATORY: Non-tachypneic, breathing comfortably on room air. GASTROINTESTINAL: Abdomen soft and non-distended GENITALURINARY: No flank tenderness. MUSCULOSKELETAL: Equal tone and mass bilaterally. SKIN: Warm, dry, soft, appropriate color for ethnicity. No other lesions, rashes, or wounds. NEURO: Alert and Oriented X 3. No gross sensory deficits, or cognitive issues. PSYCH: Appropriate affect and mood. Patient History Medical History Irregular heartbeat (Acute) Reactive airway disease (Acute) Right wrist pain (Acute) Well adult (Acute) Well adult exam (Acute) Surgical History History of breast augmentation History of carpal tunnel repair History of spinal fusion History of tonsillectomy Status post appendectomy Status post discectomy Status post hemorrhoidectomy Status post hysterectomy with oophorectomy Family & Social History Social History: household members spouse Tobacco & Substance use: Smoking Status Never smoker alcohol intake never alcohol intake frequency 0-2 drinks per day Substance Use Type does not use Meds Home Medications and Allergies Home Medications Medication Instructions Recorded Confirmed Type tretinoin 0.05 % topical cream 1 applictn TOP BEDTIME #45 gram 10/24/18 11/20/19 Rx docusate sodium 100 mg capsule 100 mg PO BID PRN cap 12/29/18 11/20/19 History meloxicam 7.5 mg tablet 7.5 mg PO BID PRN #60 tab 07/06/19 11/20/19 Rx tramadol 50 mg tablet 100 mg PO BID PRN #120 tab 12/19/19 Rx gabapentin 300 mg capsule 600 mg PO BID #180 cap 03/30/20 Rx Allergies Allergy/AdvReac Type Severity Reaction Status Date / Time No Known Drug Allergies Allergy Verified 04/05/20 09:12 Exam Vital Signs (past 8 hours): - 04/05/20 09:24 Temperature 98.6 F Pulse Rate 66 Respiratory Rate 16 Blood Pressure 119/74 Pulse Oximetry 100 Oxygen Delivery Method Room Air Assessment & Plan Assessment and plan (1) At average risk for colon cancer: Status: Acute Assessment & Plan narrative: Risks and benefits of screening colonoscopy and possible polypectomy were discussed with the patient including risk of bleeding, perforation, need for additional procedures, risks of anesthesia. The patient desires to proceed with the colonoscopy procedure. COVID-19 COVID-19 status: Negative Result date/Date tested (Pos, Neg/Pending): 04/02/20 Time Spent With Patient Time with patient: 15-24 minutes Quality VTE Deep Vein Thrombosis/Pulmonary Embolism Present on Admission: No
[2020-04-05] MEDS: fentaNYL 250 MCG/5 ML INJ IV (10:06)
[2020-04-05] MEDS: MIDAZOLAM 5 MG/5 ML VIAL IV (10:06)
--- NOTE | 2020-04-05 10:06 | P.OP.ENDO_ITS ---
Operative Date/Time/Diagnoses Date of procedure: 04/05/20 Time of procedure: 10:06 Pre-op diagnosis: Average risk for colon cancer Post-op diagnosis: other (two small polyps) Procedure & Clinicians Study performed: Colonoscopy Procedural sedation performed by the endoscopy Polypectomy x2 with cold forceps Same procedure as scheduled: Yes Indications: Average risk for colon cancer Surgeon: Christina Baca Procedure Notes SCOAP/Timeout: Performed Procedure in detail: The patient was brought to the room and placed in left lateral decubitus position with all bony prominences padded. A time-out was performed and then the patient was given procedural sedation starting with 4 mg of Versed and 100 mcg of fentanyl. Total of 5 mg of Versed and 150 micro g of fentanyl were used for the entire procedure. Vitals were monitored throughout the procedure and remained stable. Once adequately sedated, the procedure was begun. A rectal exam was performed revealing no abnormalities. The colonoscope was then introduced to the rectum and advanced to the cecum in the usual fashion. The cecum was identified by the appendiceal orifice, the mucosal tri- fold, and the ileocecal valve. The prep was moderate to poor, but I was able to wash down most of the stool in order to get an adequate view for moderate-sized to large polyps. The scope was then retracted while rotating side to side and examining each mucosal fold. Two rectal polyps were seen at 15 cm, and removed with cold forceps. At the conclusion of the procedure retroflexion was performed and small grade 1-2 internal hemorrhoids without stigmata of bleeding were seen. The scope was then withdrawn from the rectum the procedure was concluded. The patient tolerated the procedure well and was transferred to the PACU in stable condition. Scope withdrawal time: 9 Sedation minutes: 30 Findings: polyp Specimen(s): other (2 rectal polyp) Complications: none Impression: Normal colon in so far as I could examine it given the prep. Anything smaller than 5 mm could have been missed given that there was some stool throughout the colon. I did wash down as much of it as I could, in order to rule out moderate to large-sized polyps. Post-procedure Recommendations: Colonscopy in 5 years (With 2 day prep) Follow up: as needed Disposition: PACU
[2020-04-05 10:48] VITALS: BP 104/43; PULSE 59; RESP 17; TEMP 36.7; O2SAT 100
[2020-04-05 10:53] VITALS: BP 96/64; PULSE 60; RESP 17; O2SAT 100
[2020-04-05 10:57] VITALS: BP 122/63; PULSE 57; RESP 18; O2SAT 100
[2020-04-05 11:05] VITALS: BP 116/65; PULSE 59; RESP 12; TEMP 36.6; O2SAT 100
== END 2020-04-05 11:16 | disposition home or self-care (01) ==
PROVIDERS: PCP Family Medicine; Referring Provider Family Medicine; Visit Provider Surgery
PROC: 0DJD8ZZ Inspection of Lower Intestinal Tract, Via Natural or Artificial Opening Endoscopic (ICD-10-PCS; CPT 45378; principal; 2020-04-05 10:00)
DX: Z12.11 Encounter for screening for malignant neoplasm of colon (principal); K64.0 First degree hemorrhoids; K62.1 Rectal polyp
CPT/HCPCS: 45380; 99152; 99153; J2250; J3010

== ENCOUNTER → 2020-05-25 08:34 | Outpatient (CLI) | payer MEDICARE, OTHER, SELFPAY ==
[2020-05-25 10:15] LABS: Alanine Aminotransferase 20 IU/L (<35); Albumin 4.2 g/dL (3.5-5.0); Albumin Globulin Ratio 1.4 (1.0-2.8); Alkaline Phosphatase 64 U/L (38-126); Aspartate Aminotransferase 30 IU/L (14-36); BUN Creatinine Ratio 25.7 (6-22); Bilirubin Total 0.5 mg/dL (0.2-1.3); Blood Urea Nitrogen 19 mg/dL (7-17); Calcium 9.6 mg/dL (8.4-10.2); Carbon Dioxide 33 mmol/L (22-32); Chloride 104 mmol/L (98-107); Cholesterol 227 mg/dL (140-199); Estimated Glomerular Filt Rate > 60.0 mL/min (>60); Glucose 108 mg/dL (80-110); HDL Cholesterol 86 mg/dL (40-60); HEMOLYSIS < 15 (0-50); LDL Cholesterol Calculated 131 mg/dL (<100); Potassium 4.5 mmol/L (3.4-5.1); Sodium 139 mmol/L (137-145); Total Protein 7.2 g/dL (6.3-8.2); Triglycerides 52 mg/dL (35-150)
== END ==
PROVIDERS: PCP Family Medicine; Referring Provider Family Medicine; Visit Provider Family Medicine
DX: E78.2 Mixed hyperlipidemia (principal); R53.83 Other fatigue
CPT/HCPCS: 36415; 80053; 80061

== ENCOUNTER → 2020-05-29 09:08 | Outpatient (CLI) | payer MEDICARE, OTHER, SELFPAY ==
--- NOTE | 2020-05-29 09:11 | DI.RAD.S_ITS ---
PROCEDURE: XR WRIST LT MIN 3V INDICATIONS: wrist pain s/p fall TECHNIQUE: 3 views of the wrist were acquired. COMPARISON: [facility], CR, XR WRIST RT MIN 3V, 11/20/2019, 10:59. FINDINGS: Bones: No fractures or dislocations. No suspicious bony lesions. Advanced degenerative arthritis of the base of the thumb, degenerative arthritis at the triscaphe joint. Soft tissues: No suspicious soft tissue calcifications. 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 No evidence acute bony abnormality of the left wrist. If clinical suspicion and/or symptoms persist, further assessment with repeat plain films, or advanced imaging (e.g., CT, MRI, or bone scan) may be helpful for further assessment. Dictated by: Lito Hanson M.D. on 05/29/2020 at 9:35 Approved by: Lito Hanson M.D. on 05/29/2020 at 9:36
--- NOTE | 2020-05-29 09:11 | DI.RAD.S_ITS ---
PROCEDURE: XR WRIST RT MIN 3V INDICATIONS: wrist pain s/p fall TECHNIQUE: 3 views of the wrist were acquired. COMPARISON: [facility], CR, XR WRIST RT MIN 3V, 11/20/2019, 10:59. FINDINGS: Bones: No fractures or dislocations. No suspicious bony lesions. Advanced degenerative arthritis involving the base of the thumb and triscaphe joint. 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 It is more obvious today, likely secondary to positioning. Severe radiocarpal degenerative arthritis. Prominent subchondral cyst in the distal radius. Soft tissues: No suspicious soft tissue calcifications. IMPRESSION: Advanced degenerative arthritis involving the base of the thumb, triscaphe joint, and radiocarpal joint. 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 No evidence acute bony abnormality of the right wrist. If clinical suspicion and/or symptoms persist, further assessment with repeat plain films, or advanced imaging (e.g., CT, MRI, or bone scan) may be helpful for further assessment. Dictated by: Lito Hanson M.D. on 05/29/2020 at 9:36 Approved by: Lito Hanson M.D. on 05/29/2020 at 9:38
== END ==
PROVIDERS: PCP Family Medicine; Referring Provider Physical Medicine & Rehabilitation; Visit Provider Physical Medicine & Rehabilitation
DX: M19.031 Primary osteoarthritis, right wrist (principal); M19.032 Primary osteoarthritis, left wrist; M47.816 Spondylosis without myelopathy or radiculopathy, lumbar region; Z98.1 Arthrodesis status
CPT/HCPCS: 73110; 99214

== ENCOUNTER → 2020-09-26 10:55 | Outpatient (CLI) | payer MEDICARE, OTHER, SELFPAY ==
[2020-09-26 11:32] LABS: Hemoglobin A1C% w Est Avg Glu 5.6 % (4.0-6.0)
[2020-09-26 11:34] LABS: Alanine Aminotransferase 34 IU/L (<35); Albumin 4.6 g/dL (3.5-5.0); Albumin Globulin Ratio 1.6 (1.0-2.8); Alkaline Phosphatase 82 U/L (38-126); Aspartate Aminotransferase 32 IU/L (14-36); Bilirubin Total 0.2 mg/dL (0.2-1.3); Blood Urea Nitrogen 27 mg/dL (7-17); Calcium 9.4 mg/dL (8.4-10.2); Carbon Dioxide 25 mmol/L (22-32); Chloride 105 mmol/L (98-107); Cholesterol 220 mg/dL (140-199); Estimated Glomerular Filt Rate > 60.0 mL/min (>60); Globulin 2.8 g/dL (1.7-4.1); Glucose 111 mg/dL (80-110); HDL Cholesterol 80 mg/dL (40-60); HEMOLYSIS < 15 (0-50); LDL Cholesterol Calculated 127 mg/dL (<100); Sodium 139 mmol/L (137-145); Total Protein 7.4 g/dL (6.3-8.2); Triglycerides 65 mg/dL (35-150)
== END ==
PROVIDERS: PCP Family Medicine; Referring Provider Family Medicine; Visit Provider Family Medicine
DX: Z00.00 Encounter for general adult medical examination without abnormal findings (principal); E78.2 Mixed hyperlipidemia
CPT/HCPCS: 36415; 80053; 80061; 83036

== ENCOUNTER → 2021-02-12 15:42 | Outpatient (CLI) | payer MEDICARE, OTHER, SELFPAY ==
--- NOTE | 2021-02-12 15:54 | DI.RAD.S_ITS ---
PROCEDURE: XR CERVICAL SPINE 2V OR 3V INDICATIONS: Progressive neck pain with increasing ataxia TECHNIQUE: Three view(s) of the cervical spine were acquired. COMPARISON: [facility], , XR CERVICAL SPINE 2V OR 3V, 08/25/2018, 12:15. FINDINGS: Bones: No fractures or dislocations to the T1 level. There is degenerative space loss at the lateral dental interval with mild spurring. The odontoid process appears intact. There is intact posterior cervical fusion hardware from C3 through the upper thoracic spine. The alignment is stable. No suspicious bony lesions. Multilevel cervical spondylosis. Soft tissues: No prevertebral soft tissue swelling. IMPRESSION: 1. Stable appearance of the cervical spine including intact posterior fusion hardware. Dictated by: Monica Obrien M.D. on 02/12/2021 at 16:43 Approved by: Monica Obrien M.D. on 02/12/2021 at 16:47
[2021-02-13 11:05] LABS: SARS CoV19 IgG Negative (Negative)
== END ==
PROVIDERS: PCP Family Medicine; Referring Provider Family Medicine; Visit Provider Family Medicine
DX: J20.9 Acute bronchitis, unspecified (principal); M47.812 Spondylosis without myelopathy or radiculopathy, cervical region; Z20.822 Contact with and (suspected) exposure to COVID-19
CPT/HCPCS: 36415; 72040; 86769

== ENCOUNTER → 2021-03-14 16:28 | Outpatient (CLI) | payer MEDICARE, OTHER, SELFPAY ==
--- NOTE | 2021-03-14 16:29 | DI.MRI.S_ITS ---
PROCEDURE: MR CERVICAL SPINE WO CON INDICATIONS: Progressive neck pain with increasing ataxia TECHNIQUE: Noncontrast sagittal T1 spin echo and T2 fast spin echo, sagittal STIR, foraminal oblique sagittal T2 fast spin echo, and axial gradient echo or T2 fast spin echo through the cervical spine. COMPARISON: [facility], CR, XR CERVICAL SPINE 2V OR 3V, 02/12/2021, 15:50. [facility], MR, C-SPINE WITHOUT CONTRAST, 11/25/2007, 6:46. FINDINGS: Image quality: Excellent. Alignment and Curvature: There is normal bony alignment. Remote posterior laminectomy at C3 through T1 with cervicothoracic mariella and pedicle screw fixation, with fixation screws at C3, C4, C5, C6, T2, and T3. Partial interbody fusion at the posterior aspect of C4-C5 and C5-C6 vertebral bodies. Bone Marrow: Marrow demonstrates normal overall signal. Spinal Cord: Visualized spinal cord has normal size and signal. No cerebellar tonsillar herniation. Paraspinous Soft Tissues: No paravertebral masses. Prevertebral soft tissues are normal in thickness. C2-C3: No canal stenosis or foraminal stenosis. C3-C4: No canal stenosis or foraminal stenosis. C4-C5: No canal stenosis or foraminal stenosis. C5-C6: No canal stenosis. Right uncovertebral joint hypertrophy results in moderate to severe right foraminal narrowing. There is flattening deformity on the exiting right C6 nerve root. Mild left foraminal narrowing. C6-C7: No canal stenosis. Bilateral uncovertebral joint hypertrophy. There is moderate to severe bilateral foraminal narrowing with bilateral flattening deformity on the exiting C7 nerve roots. C7-T1: No canal stenosis. Moderate left foraminal narrowing with flattening deformity on the exiting left C8 nerve root. IMPRESSION: 1. Remote laminectomy from C3 through T1 with cervical thoracic mariella and pedicle screw fixation. 2. No canal stenosis. 3. Multilevel foraminal stenosis as described above, at C5-C6, C6-C7, and C7-T1. Dictated by: Lito Hanson M.D. on 03/17/2021 at 9:03 Approved by: Lito Hanson M.D. on 03/17/2021 at 9:19
== END ==
PROVIDERS: PCP Family Medicine; Referring Provider Family Medicine; Visit Provider Family Medicine
DX: M47.812 Spondylosis without myelopathy or radiculopathy, cervical region (principal); M48.02 Spinal stenosis, cervical region
CPT/HCPCS: 72141

== ENCOUNTER → 2021-07-22 07:49 | Outpatient (CLI) | payer MEDICARE, OTHER, SELFPAY ==
[2021-07-22 09:26] LABS: Alanine Aminotransferase 20 IU/L (<35); Albumin 4.2 g/dL (3.5-5.0); Albumin Globulin Ratio 1.7 (1.0-2.8); Alkaline Phosphatase 64 U/L (38-126); Aspartate Aminotransferase 29 IU/L (14-36); BUN Creatinine Ratio 10.6 (6-22); Bilirubin Total 0.6 mg/dL (0.2-1.3); Blood Urea Nitrogen 7 mg/dL (7-17); Calcium 9.4 mg/dL (8.4-10.2); Carbon Dioxide 29 mmol/L (22-32); Chloride 101 mmol/L (98-107); Cholesterol 211 mg/dL (140-199); Estimated Glomerular Filt Rate > 60.0 mL/min (>60); Globulin 2.5 g/dL (1.7-4.1); Glucose 105 mg/dL (80-110); HDL Cholesterol 78 mg/dL (40-60); HEMOLYSIS < 15 (0-50); LDL Cholesterol Calculated 118 mg/dL (<100); Sodium 137 mmol/L (137-145); Total Protein 6.7 g/dL (6.3-8.2); Triglycerides 74 mg/dL (35-150)
== END ==
PROVIDERS: PCP Family Medicine; Referring Provider Family Medicine; Visit Provider Family Medicine
DX: E78.2 Mixed hyperlipidemia (principal); K29.00 Acute gastritis without bleeding
CPT/HCPCS: 36415; 80053; 80061

== ENCOUNTER → 2021-07-30 08:24 | Outpatient (CLI) | payer MEDICARE, OTHER, SELFPAY ==
--- NOTE | 2021-07-30 08:25 | DI.US.S_ITS ---
PROCEDURE: US ABD AORTA ANEURYSM SCREEN INDICATIONS: PULSATILE MASS TECHNIQUE: Real time scanning was performed of the aorta and iliac arteries, with image documentation. COMPARISON: None. FINDINGS: Aorta: Proximal aortic diameter measures 2.4 compared to 2.1 cm. Mid-aorta measures 1.7 compared to 1.6 cm. Distal aortic diameter is 1.5 compared to 1.4 cm. Iliac arteries: Right common iliac artery measures 1.1 compared to 0.9 cm. Left common iliac artery measures 1.2 compared to 1.0 cm. IMPRESSION: No aortic aneurysmal dilation. Relatively stable interval exam. Dictated by: Mary Tirado M.D. on 07/30/2021 at 17:16 Approved by: Mary Tirado M.D. on 07/30/2021 at 17:17
== END ==
PROVIDERS: PCP Family Medicine; Referring Provider Family Medicine; Visit Provider Family Medicine
DX: R19.00 Intra-abdominal and pelvic swelling, mass and lump, unspecified site (principal); Z13.6 Encounter for screening for cardiovascular disorders
CPT/HCPCS: 76706

== ENCOUNTER → 2021-08-13 12:09 | Outpatient (CLI) | payer MEDICARE, OTHER, SELFPAY ==
--- NOTE | 2021-08-13 | DI.RAD.S_ITS ---
PROCEDURE: XR TMJ BI INDICATIONS: Unspecified temporomandibular joint disorder, unspecified si TECHNIQUE: 3 view(s) of the TMJ acquired. COMPARISON: None. FINDINGS: Exam is markedly limited secondary to patient positioning. Bones: No fractures or dislocations. No suspicious bony lesions. The right mandibular condyle appears anteriorly located with open mouth views. It appears in relative anatomic position on closed mouth views. However, there is significant osseous overlap within this region and definitive localization is limited. A similar appearance is noted on the left, although poorly visualized secondary to osseous overlap. There are no gross areas of condylar head flattening or osteophyte formation in limited view. Soft tissues: No suspicious soft tissue calcifications. IMPRESSION: Markedly limited exam secondary to patient positioning without gross evidence of condylar flattening or significant displacement. However, there is marked osseous overlap limiting evaluation of the condyle as well as articular joint space. If concern persists, evaluation with CT or MRI is recommended. Dictated by: Mary Tirado M.D. on 08/13/2021 at 20:50 Approved by: Mary Tirado M.D. on 08/13/2021 at 20:58
== END ==
PROVIDERS: PCP Family Medicine; Referring Provider Otolaryngology; Visit Provider Otolaryngology
DX: M26.609 Unspecified temporomandibular joint disorder, unspecified side (principal)
CPT/HCPCS: 70330

== ENCOUNTER → 2022-03-20 13:01 | Outpatient (CLI) | payer MEDICARE, OTHER, SELFPAY ==
[2022-03-20 13:35] LABS: Add Manual Diff / Slide Review NO; Basophils Absolute Auto 100 /uL (0-100); Basophils Percent Auto 1.5 % (0-2); Eosinophils Absolute Auto 400 /uL (0-450); Eosinophils Percent Auto 7.4 % (2-4); Hematocrit 39.3 % (36-46); Hemoglobin 13.5 g/dL (12.0-16.0); Lymphocytes Absolute Auto 1900 /uL (1100-4500); Lymphocytes Percent Auto 35.4 % (25-40); Mean Corpuscular HGB Conc 34.4 % (30-36); Mean Corpuscular Hemoglobin 29.7 PG (26-34); Mean Corpuscular Volume 86.2 fL (80-100); Monocytes Absolute Auto 400 /uL (0-900); Monocytes Percent Auto 6.7 % (3-14); Neutrophils Absolute Auto 2700 /uL (1500-7000); Platelet Count 168 X10^3/uL (150-400); Red Blood Cell Count 4.56 X10^6/uL (4.0-5.2); Red Cell Distribution Width 13.3 % (11.6-14.8); White Blood Cell Count 5.5 X10^3/uL (4.5-11.0)
[2022-03-20 13:45] LABS: Alanine Aminotransferase 21 IU/L (<35); Albumin 4.6 g/dL (3.5-5.0); Albumin Globulin Ratio 1.5 (1.0-2.8); Alkaline Phosphatase 77 U/L (38-126); Aspartate Aminotransferase 33 IU/L (14-36); BUN Creatinine Ratio 15.5 (6-22); Bilirubin Total 0.5 mg/dL (0.2-1.3); Blood Urea Nitrogen 11 mg/dL (7-17); Calcium 9.3 mg/dL (8.4-10.2); Carbon Dioxide 28 mmol/L (22-32); Chloride 99 mmol/L (98-107); Estimated Glomerular Filt Rate > 60 mL/min (>60); Globulin 3.1 g/dL (1.7-4.1); Glucose 113 mg/dL (80-110); HEMOLYSIS < 15 (0-50); Potassium 4.4 mmol/L (3.4-5.1); Sodium 138 mmol/L (137-145); Total Protein 7.7 g/dL (6.3-8.2)
== END ==
PROVIDERS: PCP Family Medicine; Referring Provider Family Medicine; Visit Provider Family Medicine
DX: E11.9 Type 2 diabetes mellitus without complications (principal); Z00.00 Encounter for general adult medical examination without abnormal findings
CPT/HCPCS: 36415; 80053; 85025

== ENCOUNTER → 2022-03-28 11:59 | Outpatient (CLI) | payer MEDICARE, OTHER, SELFPAY ==
--- NOTE | 2022-03-28 12:01 | DI.RAD.S_ITS ---
PROCEDURE: XR LUMBAR SPINE 2-3V INDICATIONS: Progressive lower back pain TECHNIQUE: 3 views of the lumbar spine were acquired. COMPARISON: None. FINDINGS: Bones: The lumbar spine has multilevel degenerative changes with disc space narrowing at L3-4, L4-5, and L5-S1. There is grade 1 anterolisthesis of L4-5 and grade 2 anterolisthesis of L5-S1 likely due to facet arthrosis which is present from L2 through S1. No vertebral body height loss. Mild rightward curvature of the lumbar spine. The sacroiliac joints have mild degenerative changes. Both hips have mild degenerative changes, greater on the left. Soft tissues: Overlying bowel gas pattern is normal. No suspicious soft tissue calcifications. Status post cholecystectomy IMPRESSION: 1. Multilevel cervical spondylosis. 2. Degenerative disc disease as detailed above. 3. Facet arthrosis with grade 1 anterolisthesis of L4-5 and grade 2 anterolisthesis of L5-S1. 4. Mild rightward curvature of the lumbar spine. Dictated by: Eric Vasquez M.D. on 03/30/2022 at 9:39 Approved by: Eric Vasquez M.D. on 03/30/2022 at 9:41
[2022-03-28 13:27] LABS: Erythrocyte Sedimentation Rate 2 MM/HR (0-20)
[2022-03-28 13:42] LABS: Free T4, Direct Thyroxine 0.85 ng/dL (0.78-2.19)
[2022-03-28 13:56] LABS: Thyroid Stimulating Hormone 1.16 uIU/mL (0.47-4.68)
[2022-04-01 15:41] LABS: ANA Screen, IFA Negative (.)
== END ==
PROVIDERS: PCP Family Medicine; Referring Provider Family Medicine; Visit Provider Family Medicine
DX: R53.83 Other fatigue (principal); M47.816 Spondylosis without myelopathy or radiculopathy, lumbar region; M85.80 Other specified disorders of bone density and structure, unspecified site; M51.36 Other intervertebral disc degeneration, lumbar region; M43.16 Spondylolisthesis, lumbar region; M43.17 Spondylolisthesis, lumbosacral region
CPT/HCPCS: 36415; 72100; 84439; 84443; 85651; 86038

== ENCOUNTER → 2022-05-22 14:10 | Outpatient (CLI) | payer MEDICARE, OTHER, SELFPAY ==
--- NOTE | 2022-05-22 14:12 | DI.RAD.S_ITS ---
PROCEDURE: XR HIP W PEL IF DONE LT 2V INDICATIONS: LEFT HIP PAIN TECHNIQUE: AP pelvis with lateral view(s) of the left hip(s). COMPARISON: None. FINDINGS: Bones: No fractures or dislocations. Pelvic ring appears intact. No suspicious bony lesions. Severe joint space narrowing, sclerosis and collar osteophytes are present at the left hip joint. There is moderate right hip joint narrowing as well. Soft tissues: The visualized bowel gas pattern is normal. No suspicious soft tissue calcifications. IMPRESSION: Moderate right and severe left hip osteoarthritis. Dictated by: Monika Drummond M.D. on 05/22/2022 at 17:24 Approved by: Monika Drummond M.D. on 05/22/2022 at 17:25
== END ==
PROVIDERS: PCP Family Medicine; Referring Provider Family Medicine; Visit Provider Family Medicine
DX: M25.552 Pain in left hip (principal); M16.0 Bilateral primary osteoarthritis of hip
CPT/HCPCS: 73502

== ENCOUNTER → 2022-05-27 11:19 | Outpatient (CLI) | payer MEDICARE, OTHER, SELFPAY | PROVIDERS: PCP Family Medicine; Referring Provider Family Medicine; Visit Provider Family Medicine | DX: Z13.820 Encounter for screening for osteoporosis (principal); Z78.0 Asymptomatic menopausal state; M85.851 Other specified disorders of bone density and structure, right thigh; Z90.710 Acquired absence of both cervix and uterus | CPT/HCPCS: 77080 ==

== ENCOUNTER → 2022-09-18 12:19 | Outpatient (CLI) | payer MEDICARE, OTHER, SELFPAY ==
--- NOTE | 2022-09-18 12:20 | DI.US.S_ITS ---
PROCEDURE: US EXTREMITY NONVASC LOWER RT INDICATIONS: nodule right hip TECHNIQUE: Real-time scanning was performed of the right anterior thigh, with image documentation. COMPARISON: None. FINDINGS: Hyperechoic solid appearing subcutaneous soft tissue mass measuring 2.1 x 0.7 x 2.4 cm. No vascularity. Hypoechoic solid-appearing soft tissue mass measuring 0.8 x 0.4 x 0.8 cm. No vascularity. Hypoechoic solid subcutaneous mass measuring 0.7 x 0.6 x 0.8 cm. No vascularity. IMPRESSION: Nonspecific solid subcutaneous soft tissue masses. Differential would include both benign and malignant etiologies. These could represent lipomas. If indicated, soft tissue MRI could be performed for further characterization. Dictated by: Margarito DAVISON Interpreted: Kam Fuchs MD on 09/18/2022 at 13:13 Transcribed by: WILBERT on 09/18/2022 at 13:18 Approved by: Kam Fuchs M.D. on 09/18/2022 at 17:34
== END ==
PROVIDERS: PCP Family Medicine; Referring Provider Nurse Practitioner Family; Visit Provider Nurse Practitioner Family
DX: M79.89 Other specified soft tissue disorders (principal)
CPT/HCPCS: 76882

== ENCOUNTER → 2022-11-06 11:25 | Outpatient (CLI) | payer MEDICARE, OTHER, SELFPAY ==
--- NOTE | 2022-11-06 11:26 | DI.MRI.S_ITS ---
PROCEDURE: MR FEMUR RT WO/W CON INDICATIONS: Soft tissue masses right upper leg/hip TECHNIQUE: Noncontrast coronal T1 spin echo and STIR, sagittal T1 spin echo with fat saturation and STIR, axial T1 spin echo and T2 fast spin echo with fat saturation. After the administration of contrast, axial/sagittal/coronal T1 spin echo with fat saturation through the right thigh. COMPARISON: None. FINDINGS: Image quality: Excellent. Bones: Asymmetric severe left hip joint osteoarthritic changes are seen. No acute fracture or dislocation. No suspicious bony lesion. No bony erosion or abnormal periosteal reaction is seen. No evidence of avascular necrosis of right femoral head. Signal abnormality involving left femoral head weight-bearing portion concerning for avascular necrosis incompletely evaluated on this study of right femur. Soft tissues: Fiducial marker is placed over lateral aspect of posterior right upper thigh/hip at the level of ischial tuberosity. Normal fat signal is noted at the site of the marker. No enhancing soft tissue mass is noted. The scanned muscles demonstrate normal overall bulk and internal signal. No abnormal soft tissue enhancement. IMPRESSION: 1. Normal fat signal is seen in posterior lateral right upper thigh/right hip at the patient's reported area of soft tissue mass and show no area of abnormal enhancement. Finding may represent benign unencapsulated lipoma. Clinical correlation and follow-up is recommended. 2. No intramuscular mass or fluid collection. No drainable soft tissue fluid collection. 3. Severe left hip joint osteoarthritis and mild right hip joint osteoarthritis. No evidence of avascular necrosis of right femoral head. Suggestion of avascular necrosis involving weight-bearing portion of left femoral head incompletely evaluated on this study. No abnormal intraosseous enhancement. Dictated by: Cole Ross M.D. on 11/06/2022 at 13:02 Approved by: Cole Ross M.D. on 11/06/2022 at 13:05
== END ==
PROVIDERS: PCP Family Medicine; Referring Provider Surgery; Visit Provider Surgery
DX: M16.0 Bilateral primary osteoarthritis of hip (principal); M79.89 Other specified soft tissue disorders
CPT/HCPCS: 73720

== ENCOUNTER → 2022-11-24 11:12 | Outpatient (CLI) | payer MEDICARE, OTHER, SELFPAY ==
--- NOTE | 2022-11-24 11:14 | DI.RAD.S_ITS ---
PROCEDURE: XR HAND RT MIN 3V INDICATIONS: Wrist pain TECHNIQUE: 3 views of the hand(s) acquired. COMPARISON: [facility], CR, XR WRIST RT MIN 3V, 11/20/2019, 10:59. [facility], CR, HAND 3V LEFT, 10/24/2010, 10:58. FINDINGS: Bones: No displaced fracture. No dislocation. Advanced degenerative changes of the STT and 1st CMC joints and [id number] degenerative changes elsewhere. Small bone fragment adjacent to the 3rd DIP, possibly from prior injury. Correlate with any tenderness. Soft tissues: No suspicious calcifications elsewhere. IMPRESSION: Advanced wrist degenerative changes. If there is high concern for further derangement, consider MRI evaluation. Dictated by: Emanuel Sesay M.D. on 11/24/2022 at 12:14 Approved by: Emanuel Sesay M.D. on 11/24/2022 at 12:15
== END ==
PROVIDERS: PCP Family Medicine; Referring Provider Surgery; Visit Provider Surgery
DX: M25.531 Pain in right wrist (principal); M79.89 Other specified soft tissue disorders; D17.23 Benign lipomatous neoplasm of skin and subcutaneous tissue of right leg; Z68.21 Body mass index [BMI] 21.0-21.9, adult
CPT/HCPCS: 73130; 99212

== ENCOUNTER → 2023-01-04 10:38 | Outpatient (CLI) | payer MEDICARE, OTHER, SELFPAY ==
--- NOTE | 2023-01-04 10:40 | DI.RAD.S_ITS ---
PROCEDURE: XR HIP W PEL IF DONE LT 2V INDICATIONS: Lt hip pain. TECHNIQUE: AP pelvis with lateral view(s) of the left hip(s). COMPARISON: [facility], , XR HIP W PEL IF DONE LT 2V, 05/22/2022, 14:13. FINDINGS: Bones: No fractures or dislocations. Pelvic ring appears intact. No suspicious bony lesions marked interval progression of degenerative arthritis of the left hip, now end-stage. Moderate right hip degenerative arthritis.. Soft tissues: The visualized bowel gas pattern is normal. No suspicious soft tissue calcifications. IMPRESSION: Significant interval progression of degenerative arthritis of the left hip, now end-stage. Dictated by: Lito Hanson M.D. on 01/04/2023 at 15:24 Approved by: Lito Hanson M.D. on 01/04/2023 at 15:26
== END ==
PROVIDERS: PCP Family Medicine; Referring Provider Family Medicine; Visit Provider Family Medicine
DX: M16.12 Unilateral primary osteoarthritis, left hip (principal)
CPT/HCPCS: 73502

== ENCOUNTER → 2023-02-05 11:41 | Outpatient (CLI) | payer MEDICARE, OTHER, SELFPAY ==
--- NOTE | 2023-02-05 11:43 | DI.RAD.S_ITS ---
PROCEDURE: XR CERVICAL SPINE 2V OR 3V INDICATIONS: follow up hardware check up TECHNIQUE: 3 view(s) of the cervical spine were acquired. COMPARISON: [facility], CR, XR CERVICAL SPINE 2V OR 3V, 02/12/2021, 15:50. FINDINGS: Bones: Extensive fusion changes are again noted in cervical spine and upper thoracic spine with hardware positions unchanged from prior study. No evidence of hardware loosening or failure. No acute fracture or dislocation. Cervical spine alignment is unchanged from prior study. Degenerative endplate changes throughout cervical spine is again seen. The lateral masses of C1 appear intact on the odontoid view. No suspicious bony lesions. Soft tissues: No prevertebral soft tissue swelling. IMPRESSION: Extensive posterior fusion changes in cervical spine and upper thoracic spine unchanged from prior study. No evidence of hardware loosening or failure. No acute fracture or dislocation. Degenerative endplate changes throughout cervical spine. Dictated by: Cole Ross M.D. on 02/05/2023 at 15:58 Approved by: Cole Ross M.D. on 02/05/2023 at 16:02
== END ==
PROVIDERS: PCP Family Medicine; Referring Provider Family Medicine; Visit Provider Family Medicine
DX: M54.2 Cervicalgia (principal); Z98.1 Arthrodesis status
CPT/HCPCS: 72040

== ENCOUNTER → 2023-05-26 13:03 | Outpatient (CLI) | payer MEDICARE, OTHER, SELFPAY ==
--- NOTE | 2023-05-26 13:04 | DI.RAD.S_ITS ---
PROCEDURE: XR HIP W PEL IF DONE LT 2V INDICATIONS: fall on hip, pain and swelling lateral, TECHNIQUE: AP pelvis and lateral view of the left hip acquired. COMPARISON: [facility], CR, XR HIP W PEL IF DONE LT 2V, 01/04/2023, 10:34. [facility], CR, XR HIP W PEL IF DONE LT 2V, 05/22/2022, 14:13. FINDINGS: Bones: Patient is status post left hip arthroplasty, with hardware components in expected positions. The hardware appears intact without surrounding fracture or lucency. Degenerative changes of the visualized lower lumbar spine and pubic symphysis. Moderate degenerative changes of the right hip. The hip joint appears congruent. The visualized bony structures appear intact. Soft tissues: Overlying postoperative changes are noted. No suspicious soft tissue densities. IMPRESSION: Left hip arthroplasty without evidence of complication. No acute osseous abnormalities. Stable moderate degenerative changes of the right hip. Dictated by: Juan J Wheeler M.D. on 05/26/2023 at 13:42 Approved by: Juan J Wheeler M.D. on 05/26/2023 at 13:43
== END ==
PROVIDERS: PCP Family Medicine; Referring Provider Physician Assistant; Visit Provider Physician Assistant
DX: M16.12 Unilateral primary osteoarthritis, left hip (principal); Z96.642 Presence of left artificial hip joint
CPT/HCPCS: 73502

== ENCOUNTER → 2023-08-04 11:16 | Outpatient (CLI) | payer MEDICARE, OTHER, SELFPAY ==
[2023-08-04 12:02] LABS: Add Manual Diff / Slide Review NO; Basophils Absolute Auto 100 /uL (0-100); Basophils Percent Auto 2.5 % (0-2); Eosinophils Absolute Auto 500 /uL (0-450); Eosinophils Percent Auto 8.9 % (2-4); Hematocrit 40.2 % (36-46); Hemoglobin 13.5 g/dL (12.0-16.0); Lymphocytes Absolute Auto 2100 /uL (1100-4500); Lymphocytes Percent Auto 36.9 % (25-40); Mean Corpuscular HGB Conc 33.5 % (30-36); Mean Corpuscular Hemoglobin 28.9 PG (26-34); Mean Corpuscular Volume 86.1 fL (80-100); Monocytes Absolute Auto 500 /uL (0-900); Monocytes Percent Auto 8.1 % (3-14); Neutrophils Absolute Auto 2500 /uL (1500-7000); Neutrophils Percent Auto 43.6 % (50-75); Platelet Count 183 X10^3/uL (150-400); Red Blood Cell Count 4.67 X10^6/uL (4.0-5.2); Red Cell Distribution Width 14.7 % (11.6-14.8); White Blood Cell Count 5.7 X10^3/uL (4.5-11.0)
[2023-08-04 12:23] LABS: Alanine Aminotransferase 33 IU/L (<35); Albumin 4.3 g/dL (3.5-5.0); Albumin Globulin Ratio 1.3 (1.0-2.8); Alkaline Phosphatase 79 U/L (38-126); Aspartate Aminotransferase 41 IU/L (14-36); BUN Creatinine Ratio 25.4 (6-22); Bilirubin Total 0.6 mg/dL (0.2-1.3); Blood Urea Nitrogen 17 mg/dL (7-17); Calcium 9.2 mg/dL (8.4-10.2); Carbon Dioxide 29 mmol/L (22-32); Chloride 102 mmol/L (98-107); Cholesterol 234 mg/dL (140-199); Estimated Glomerular Filt Rate > 60 mL/min (>60); Globulin 3.3 g/dL (1.7-4.1); Glucose 109 mg/dL (80-110); HDL Cholesterol 78 mg/dL (40-60); HEMOLYSIS < 15 (0-50); LDL Cholesterol Calculated 140 mg/dL (<100); Potassium 4.7 mmol/L (3.4-5.1); Sodium 138 mmol/L (137-145); Total Protein 7.6 g/dL (6.3-8.2); Triglycerides 80 mg/dL (35-150)
[2023-08-04 12:50] LABS: TSH w/ Reflex to FT4 2.38 uIU/mL (0.47-4.68)
== END ==
PROVIDERS: PCP Family Medicine; Referring Provider Family Medicine; Visit Provider Family Medicine
DX: Z00.00 Encounter for general adult medical examination without abnormal findings (principal); E78.2 Mixed hyperlipidemia; R53.83 Other fatigue
CPT/HCPCS: 36415; 80053; 80061; 84443; 85025

== ENCOUNTER → 2023-09-30 14:40 | Outpatient (CLI) | payer MEDICARE, OTHER, SELFPAY ==
--- NOTE | 2023-09-30 14:42 | DI.RAD.S_ITS ---
PROCEDURE: XR HAND RT MIN 3V INDICATIONS: eval arthritis TECHNIQUE: 3 views of the hand(s) acquired. COMPARISON: [facility], , XR HAND RT MIN 3V, 11/24/2022, 11:25. FINDINGS: Bones: No fractures or dislocations. Severe 1st CMC and radiocarpal joint space narrowing, subchondral sclerosis, not significant changed compared to prior. No suspicious bony lesions. Soft tissues: No suspicious soft tissue calcifications. IMPRESSION: Advanced wrist degenerative changes, not significantly changed compared to prior. Approved by: Ayala Be M.D.,Ph.D. on 09/30/2023 at 21:54
== END ==
LOC: RAD 14:41
PROVIDERS: PCP Family Medicine; Referring Provider Family Medicine; Visit Provider Family Medicine
DX: M19.041 Primary osteoarthritis, right hand (principal); M19.042 Primary osteoarthritis, left hand
CPT/HCPCS: 73130

== ENCOUNTER → 2023-10-14 13:44 | Outpatient (CLI) | payer MEDICARE, OTHER, SELFPAY ==
--- NOTE | 2023-10-14 13:46 | DI.RAD.S_ITS ---
PROCEDURE: XR HAND LT MIN 3V INDICATIONS: eval arthitis TECHNIQUE: 4 views of the hand(s) acquired. COMPARISON: [facility], CR, XR HAND RT MIN 3V, 09/30/2023, 14:48. [facility], CR, XR HAND RT MIN 3V, 11/24/2022, 11:25. FINDINGS: Bones: No fractures or dislocations. Marked degenerative change at the 1st CMC joint. Moderate degenerative change at the MCP and interphalangeal joints. Bones appear osteopenic. Large hook osteophyte at the 5th digit DIP joint. Carpal bones are normally aligned. No suspicious bony lesions. Soft tissues: No suspicious soft tissue calcifications. IMPRESSION: Advanced degenerative changes at the 1st CMC joint. Large osteophyte at the 5th digit DIP joint. Bones appear osteopenic. Dictated by: Kam Fuchs M.D. on 10/14/2023 at 21:52 Approved by: Kam Fuchs M.D. on 10/14/2023 at 22:01
[2023-10-14 16:43] LABS: Vitamin D 25 Hydroxy (D3) 67.7 ng/mL (30.0-100.0)
== END ==
PROVIDERS: PCP Family Medicine; Referring Provider Family Medicine; Visit Provider Family Medicine
DX: M19.042 Primary osteoarthritis, left hand (principal); Z00.00 Encounter for general adult medical examination without abnormal findings; M19.041 Primary osteoarthritis, right hand; M85.80 Other specified disorders of bone density and structure, unspecified site; Z13.21 Encounter for screening for nutritional disorder
CPT/HCPCS: 36415; 73130; 82306

== ENCOUNTER → 2023-11-12 18:06 | Outpatient (CLI) | payer MEDICARE, OTHER, SELFPAY ==
--- NOTE | 2023-11-12 18:08 | DI.RAD.S_ITS ---
PROCEDURE: XR CERVICAL SPINE 2V OR 3V INDICATIONS: Loud cracking in neck TECHNIQUE: 3 view(s) of the cervical spine were acquired. COMPARISON: [facility], CR, XR CERVICAL SPINE 2V OR 3V, 02/05/2023, 12:16. FINDINGS: Bones: Evaluation of the lower cervical spine is markedly limited secondary to patient positioning and diffuse osseous demineralization. Within these limitations, no definite fracture or dislocation to the C6 level. The right lateral mass of C1 appear intact on the odontoid view. The left lateral mass is partially obscured by dental hardware. Posterior fusion hardware extending from C3 to the upper thoracic spine is intact with no perihardware lucency to suggest hardware loosening. Stable multilevel degenerative changes. No suspicious bony lesions. Soft tissues: No prevertebral soft tissue swelling. Visualized lung apices are clear. IMPRESSION: 1. Evaluation of the lower cervical spine is markedly limited secondary to patient positioning and diffuse osseous demineralization. Within these limitations, no definite fracture or dislocation to the C6 level. If clinical symptoms persist, recommend a CT for further evaluation. 2. Posterior fusion hardware extending from C3 to the upper thoracic spine is intact with no radiographic evidence of loosening. Dictated by: Jessi Brown M.D. on 11/14/2023 at 8:11 Approved by: Jessi Brown M.D. on 11/14/2023 at 8:14
== END ==
PROVIDERS: PCP Family Medicine; Referring Provider Family Medicine; Visit Provider Family Medicine
DX: M54.2 Cervicalgia (principal); M47.812 Spondylosis without myelopathy or radiculopathy, cervical region; Z98.1 Arthrodesis status
CPT/HCPCS: 72040

== ENCOUNTER 2024-03-08 15:42 | Emergency (ER) | payer MEDICARE, OTHER, SELFPAY ==
[2024-03-08 15:54] VITALS: BP 179/84; PULSE 68; RESP 17; TEMP 36.6; O2SAT 96; BMI 20.9
--- NOTE | 2024-03-08 16:03 | ED_ITS ---
HPI - Skin/Abscess/Foreign Bdy <Armaan Persaud PA-C - Last Filed: 03/08/24 16:14> General Chief complaint: Skin/Abscess/Foreign Body Stated complaint: Numbness/Px in L Fingers Time Seen by Provider: 03/08/24 16:02 Source: patient Mode of arrival: Ambulatory History of Present Illness HPI narrative: This is a 78-year-old female presents emergency department due to redness to her 2nd 3rd and 4th digits for left hand. Patient was concerned as cellulitis as well as her daughter who has a nurse 30 years who is concerned as cellulitis as well. Patient denies any fevers. States that the redness initially began in th e 4th digit and spread to the 3rd and 2nd digits.. Related Data Home Medications Medication Instructions Recorded Confirmed aflibercept 2 mg/0.05 mL 2 mg intravitreal QMONTH 09/25/20 08/09/23 intravitreal solution for injection (Eylea) Previous Rx's Medication Instructions Recorded tretinoin 0.05 % topical cream 1 applic topical BEDTIME #45 grams 03/26/22 amlodipine 2.5 mg tablet 2.5 mg PO DAILY #30 tabs 05/23/22 Disabled Parking #1 ea 06/24/22 cyclobenzaprine 10 mg tablet 10 mg PO BID PRN muscle spasm #60 02/01/23 tabs gabapentin 300 mg capsule See Rx Instructions .Route 08/02/23 .COMPLEX #180 caps tramadol 50 mg tablet See Rx Instructions .Route 02/26/24 .COMPLEX #120 tabs cephalexin 500 mg capsule 500 mg PO QID #28 caps 03/08/24 Allergies Allergy/AdvReac Type Severity Reaction Status Date / Time No Known Drug Allergies Allergy Verified 03/08/24 15:56 Review of Systems <Armaan Persaud PA-C - Last Filed: 03/08/24 16:14> Review of Systems Narrative: GENERAL: Denies chills, fatigue, malaise, fever, sweats. HEENT: Denies sinus pain, ear pain, sore throat, difficulty swallowing, dizziness. RESPIRATORY: Denies dyspnea, cough, wheezing, hemoptysis, sputum. CARDIOVASCULAR: Denies chest pain, palpitations, orthopnea, edema, GASTROINTESTINAL: Denies nausea, vomiting, abdominal pain, diarrhea, constip ation, melena. : Denies dysuria, frequency, incontinence, hematuria, urinary retention. MUSCULOSKELETAL: Reports left 2nd 3rd and 4th digit pain, redness, and swelling SKIN: Denies rash, skin lesions, or other NEUROLOGIC: Denies weakness, headache, numbness, change in speech, confusion, seizures, incoordination. PSYCHIATRIC: No concerning psychosocial issues. 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 Gastritis Degenerative joint disease of wrist Well adult exam Well adult Irregular heartbeat Right wrist pain Reactive airway disease Surgical History Status post appendectomy History of tonsillectomy History of breast augmentation Status post hysterectomy with oophorectomy Status post discectomy Status post hemorrhoidectomy History of spinal fusion History of carpal tunnel repair Social History household members: spouse Smoking Status: Never smoker second hand exposure: Yes (My parents and grandparents smoked) alcohol intake: never substance use type: does not use Smoking Status: Never smoker alcohol intake frequency: 0-2 drinks per day Substance Use Type: does not use Exam <Armaan Persaud PA-C - Last Filed: 03/08/24 16:14> Narrative Exam Narrative: GENERAL: Well-developed patient, in mild distress. HEAD: Atraumatic. Normocephalic. EYES: Pupils equal round and reactive. Extraocular motions intact. No scleral icterus. No injection or drainage. ENT: Nose without bleeding, purulent drainage. Throat without erythema, tonsillar hypertrophy or exudate. Airway patent. NECK: Trachea midline. Non tender EXTREMITIES: No edema or joint tenderness. NEURO: AOx3. SKIN: Mild erythema dispersed through the left 2nd 3rd and 4th digits. No pain with palpation of the joint sheath, no pain with passive extension Initial Vital Signs Initial Vital Signs: Vital Signs Temperature 98 F 03/08/24 15:54 Pulse Rate 68 03/08/24 15:54 Respiratory Rate 17 03/08/24 15:54 Blood Pressure 179/84 H 03/08/24 15:54 Pulse Oximetry 96 03/08/24 15:54 Oxygen Delivery Method Room Air 03/08/24 15:54 <Luis Nicole MD - Last Filed: 03/08/24 18:48> Initial Vital Signs Initial Vital Signs: Vital Signs Temperature 98 F 03/08/24 15:54 Pulse Rate 68 03/08/24 15:54 Respiratory Rate 17 03/08/24 15:54 Blood Pressure 179/84 H 03/08/24 15:54 Pulse Oximetry 96 03/08/24 15:54 Oxygen Delivery Method Room Air 03/08/24 15:54 Course <Armaan Persaud PA-C - Last Filed: 03/08/24 16:14> Vital Signs Vital signs: Vital Signs - 8 hr 03/08/24 15:54 Temperature 98 F Pulse Rate 68 Respiratory Rate 17 Blood Pressure 179/84 H Pulse Oximetry 96 Oxygen Delivery Method Room Air <Luis Nicole MD - Last Filed: 03/08/24 18:48> Vital Signs Vital signs: Vital Signs - 8 hr 03/08/24 15:54 Temperature 98 F Pulse Rate 68 Respiratory Rate 17 Blood Pressure 179/84 H Pulse Oximetry 96 Oxygen Delivery Method Room Air MDM - Skin/Abscess/Foreign Bdy <Armaan Persaud PA-C - Last Filed: 03/08/24 16:14> MDM Narrative Medical decision making narrative: ED course: This is a 78-year-old female presents to the emergency department due to possible cellulitis of the fingers of the left hand. There was no pain with palpation of the tendon sheath as well as no pain with extension passively of the fingers. Low concern for flexor tenosynovitis. Patient and daughter requesting antibiotics for possible cellulitis and this will be prescribed. CC: Finger pain Complicating co-morbidities: Former smoker Data collected from: Previous notes Medical records reviewed: Patient was last seen 4 years ago due to GI bleed. Former smoker. History of spine surgery, cholecystectomy, degenerative joint disease. For primary care note from 7 months ago patient has progressive osteoarthritis in the wrists and thumbs bilateral Differential considered, but not limited to: Cellulitis, flexor tenosynovitis, gout, arthritis Exam documented above, pertinent findings include: As above Lab Test results independently reviewed as above. Pertinent findings: None obtained Imaging studies independently reviewed: None obtained Scores Used: None MIPS Elements: None Consultations: None Treatments: None Re-evaluations: None Discussion: Discussed plan with the patient was comfortable with the plan Diagnosis: Cellulitis Disposition: see below, along with detailed discharge instructions that have been reviewed with patient as well as indications for ED re-evaluation and additional outpatient follow up Discharge Plan Departure Patient Disposition: Home Clinical Impression: Cellulitis Instructions: DI for Cellulitis -- Adult Activity Restrictions/Additional Instructions: Thank you for coming to the [facility] Emergency Department today. As we discussed this may be cellulitis your fingers. Please take the oral antibiotics as prescribed. I recommend ibuprofen for as needed for any pain. Please return to the emergency department if you develop any redness continuing to spread up the hand or arms while on the antibiotics or any other concerning signs or symptoms. I hope you feel better soon. Please follow up with your primary care provider within a week if your symptoms continue. If you do not have a primary care provider please contact the [facility] Resource line at [phone]. They will ask some questions about your medical history and help you get set up with a provider in the community. Prescriptions: New cephalexin 500 mg capsule 500 mg PO QID Qty: 28 0RF No Action amlodipine 2.5 mg tablet 2.5 mg PO DAILY Qty: 30 3RF (DME) Disabled Parking See Rx Instructions .Route .MEDSUPPLY Qty: 1 0RF Rx Instructions: I find this patient to be medically disabled and qualified for Disabled Parking as indicated and signed on the Accompanying Disabled Parking Application for individuals. cyclobenzaprine 10 mg tablet 10 mg PO BID PRN (Reason: muscle spasm) Qty: 60 1RF gabapentin 300 mg capsule See Rx Instructions .ROUTE .COMPLEX Qty: 180 5RF Dose Instruction: take 2 capsules by mouth twice a day Rx Instructions: take 2 capsules by mouth three times a day tramadol 50 mg tablet See Rx Instructions .ROUTE .COMPLEX Qty: 120 2RF Dose Instruction: take 2 tablets by mouth twice a day if needed for pain Rx Instructions: take 2 tablets by mouth twice a day if needed for pain Eylea 2 mg/0.05 mL solution 2 mg intravitreal QMONTH tretinoin 0.05 % cream 1 applic TOP BEDTIME Qty: 45 3RF Rx Instructions: apply thin layer to the affected area Referrals: Mansoor Costa, DO [Primary Care Provider] - Stand Alone Forms: Patient Portal/API ED Sign-out <Luis Nicole MD - Last Filed: 03/08/24 18:48> Cosign ED Attending Cosignature Attestation: I was immediately available in the department for consultation. This documentation has been reviewed and I agree with assessment and plan. Supervised by Luis Nicole MD
--- NOTE | 2024-03-08 16:22 | PC.NURSE ---
Pt seen and assess by provider prior to nurse being in room. pt discharged prior to nurse assessment.
== END 2024-03-08 16:25 | disposition home or self-care (01) ==
PROVIDERS: Emergency Provider Physician Assistant Medical; PCP Family Medicine
DX: L03.012 Cellulitis of left finger (principal)
CPT/HCPCS: 99281; 99283

== ENCOUNTER → 2024-03-15 09:30 | Outpatient (CLI) | payer MEDICARE, OTHER, SELFPAY ==
--- NOTE | 2024-03-15 09:31 | DI.RAD.S_ITS ---
PROCEDURE: XR HAND LT MIN 3V INDICATIONS: Swelling and pain across MCPs - RA (?) TECHNIQUE: 3 views of the hand(s) acquired. COMPARISON: [facility], CR, XR HAND LT MIN 3V, 10/14/2023, 13:54. FINDINGS: Bones: No fractures or dislocations. Carpal bones are normally aligned. There is diffuse osteopenia. Joint space narrowing, subchondral sclerosis and marginal osteophyte formation are noted throughout left hand and wrist joints most notably involving 1st CMC joint. Subtle radiolucent areas are noted involving 2nd through 4th metacarpal heads and adjacent 3rd and 4th proximal phalangeal bases, early erosive changes cannot be excluded. No acute fracture or dislocation. No suspicious bony lesions. Soft tissues: No suspicious soft tissue calcifications. IMPRESSION: Moderate left hand and wrist joint osteoarthritis most notably involving 1st CMC joint. Subtle radiolucencies involving 2nd through 4th MCP joints as described above, which can represent erosion secondary to inflammatory arthropathies suggest clinical correlation. Dictated by: Cole Ross M.D. on 03/15/2024 at 13:20 Approved by: Cole Ross M.D. on 03/15/2024 at 13:21
== END ==
PROVIDERS: PCP Family Medicine; Referring Provider Physician Assistant; Visit Provider Physician Assistant
DX: M18.12 Unilateral primary osteoarthritis of first carpometacarpal joint, left hand (principal); M19.042 Primary osteoarthritis, left hand; M19.032 Primary osteoarthritis, left wrist; M79.642 Pain in left hand
CPT/HCPCS: 73130

== ENCOUNTER → 2024-03-16 07:51 | Outpatient (CLI) | payer MEDICARE, OTHER, SELFPAY ==
[2024-03-16 09:21] LABS: Add Manual Diff / Slide Review NO; Basophils Absolute Auto 100 /uL (0-100); Basophils Percent Auto 1.2 % (0-2); Eosinophils Absolute Auto 400 /uL (0-450); Eosinophils Percent Auto 8.4 % (2-4); Hemoglobin 13.9 g/dL (12.0-16.0); Lymphocytes Absolute Auto 1600 /uL (1100-4500); Lymphocytes Percent Auto 30.6 % (25-40); Mean Corpuscular HGB Conc 33.2 % (30-36); Mean Corpuscular Hemoglobin 29.1 PG (26-34); Mean Corpuscular Volume 87.6 fL (80-100); Monocytes Absolute Auto 500 /uL (0-900); Neutrophils Absolute Auto 2700 /uL (1500-7000); Neutrophils Percent Auto 50.8 % (50-75); Platelet Count 186 X10^3/uL (150-400); Red Blood Cell Count 4.79 X10^6/uL (4.0-5.2); Red Cell Distribution Width 14.1 % (11.6-14.8); White Blood Cell Count 5.3 X10^3/uL (4.5-11.0)
[2024-03-16 10:05] LABS: Erythrocyte Sedimentation Rate 16 MM/HR (0-20)
[2024-03-16 10:33] LABS: Hemoglobin A1C% w Est Avg Glu 5.5 % (4.0-6.0)
[2024-03-16 10:34] LABS: Alanine Aminotransferase 22 IU/L (<35); Albumin 4.1 g/dL (3.5-5.0); Albumin Globulin Ratio 1.3 (1.0-2.8); Alkaline Phosphatase 71 U/L (38-126); Aspartate Aminotransferase 30 IU/L (14-36); BUN Creatinine Ratio 30.4 (6-22); Bilirubin Total 0.6 mg/dL (0.2-1.3); Blood Urea Nitrogen 21 mg/dL (7-17); Calcium 9.5 mg/dL (8.4-10.2); Carbon Dioxide 28 mmol/L (22-32); Chloride 104 mmol/L (98-107); Cholesterol 219 mg/dL (140-199); Estimated Glomerular Filt Rate > 60 mL/min (>60); Globulin 3.2 g/dL (1.7-4.1); Glucose 104 mg/dL (80-110); HDL Cholesterol 69 mg/dL (40-60); HEMOLYSIS < 15 (0-50); LDL Cholesterol Calculated 127 mg/dL (<100); Potassium 3.9 mmol/L (3.4-5.1); Sodium 137 mmol/L (137-145); Total Protein 7.3 g/dL (6.3-8.2); Triglycerides 117 mg/dL (35-150); Uric Acid 6.1 mg/dL (2.5-6.2)
[2024-03-16 10:49] LABS: Vitamin D 25 Hydroxy (D3) 60.8 ng/mL (30.0-100.0)
[2024-03-16 11:02] LABS: TSH w/ Reflex to FT4 2.62 uIU/mL (0.47-4.68)
== END ==
PROVIDERS: PCP Family Medicine; Referring Provider Physician Assistant; Visit Provider Physician Assistant
DX: I49.9 Cardiac arrhythmia, unspecified (principal); E16.1 Other hypoglycemia; E78.2 Mixed hyperlipidemia; M85.80 Other specified disorders of bone density and structure, unspecified site; R53.83 Other fatigue; M25.50 Pain in unspecified joint; M79.642 Pain in left hand
CPT/HCPCS: 36415; 80053; 80061; 82306; 83036; 84443; 84550; 85025; 85651; 86200

== ENCOUNTER → 2024-04-04 14:18 | Outpatient (CLI) | payer MEDICARE, OTHER, SELFPAY | PROVIDERS: PCP Family Medicine; Visit Provider Physician Assistant Surgical | DX: K04.7 Periapical abscess without sinus (principal) | CPT/HCPCS: 87070; 87075; 87205 ==

== ENCOUNTER → 2024-06-03 14:13 | Outpatient (CLI) | payer MEDICARE, OTHER, SELFPAY ==
--- NOTE | 2024-06-03 14:14 | DI.MRI.S_ITS ---
PROCEDURE: MR HEAD/BRAIN WO CON INDICATIONS: eval chronic headache TECHNIQUE: Non-contrast axial T1 spin echo, axial T2 fast spin echo, sagittal and axial FLAIR, coronal T2 fast spin echo, axial gradient echo, axial diffusion and ADC through the brain. COMPARISON: [facility], MR, MR HEAD/BRAIN WO/W CON, 02/20/2019, 12:45. [facility], MR, MR CERVICAL SPINE WO CON, 06/03/2024, 14:37. [facility], CT, HEAD WITHOUT CONTRAST, 09/04/2016, 9:41. FINDINGS: Image quality: Excellent. CSF spaces: Ventricles appear symmetric in size and shape. Basal cisterns are patent. No extra-axial fluid collections. Brain: Within the deep white matter of the right frontal lobe, there is again seen a focal lesion that is slightly hyperintense on T2 weighted imaging and demonstrates a T2 hypointense rim, as on series 9, image 18. Associated blooming artifact can be seen on the hemosiderin sensitive sequence, as on series 10, image 15. The appearance is unchanged compared to 2018. No intracranial mass effects. This is unchanged compared to 2019. There is cerebral volume loss for age. There are periventricular and deep white matter chronic small vessel ischemic changes. Brainstem appears normal. Diffusion-weighted images show no acute infarct. No chronic ischemic insults. Normal intravascular flow voids are present. Skull and face: Calvarial bone marrow is normal in signal. Orbits are normal. Sinuses: Sinuses and mastoids are clear. IMPRESSION: No imaging explanation is found for this patient's presenting symptoms. To the limits of this noncontrast study, no findings of intracranial masses or mass effect can be seen. 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 This is considered to be an incidental, benign process. Dictated by: Yassine Garcia M.D. on 06/05/2024 at 12:38 Approved by: Yassine Garcia M.D. on 06/05/2024 at 12:40
--- NOTE | 2024-06-03 14:14 | DI.MRI.S_ITS ---
PROCEDURE: MR CERVICAL SPINE WO CON INDICATIONS: eval neck pain, hx fusion TECHNIQUE: Noncontrast sagittal T1 spin echo and T2 fast spin echo, sagittal STIR, foraminal oblique sagittal T2 fast spin echo, and axial gradient echo or T2 fast spin echo through the cervical spine. COMPARISON: [facility], CR, XR CERVICAL SPINE 2V OR 3V, 11/12/2023, 18:17. [facility], MR, MR CERVICAL SPINE WO CON, 03/14/2021, 16:52. [facility], MR, MR HEAD/BRAIN WO CON, 06/03/2024, 14:37. FINDINGS: Image quality: There is artifact associated with the metallic hardware. Alignment and Curvature: There is overall straightening of the normal cervical lordosis. No focal AP alignment abnormality is seen. Bone Marrow: Marrow demonstrates normal overall signal. Spinal Cord: Visualized spinal cord has normal size and signal. No cerebellar tonsillar herniation. Paraspinous Soft Tissues: No paravertebral masses. Prevertebral soft tissues are normal in thickness. Extensive cervical thoracic fixation hardware is seen, extending from C3 through T3. There is been removal of prominent portions of the posterior elements. 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 Moderate loss of disc height is seen. Loss of disc signal is seen. Moderate generalized disc osteophyte complex is seen. Moderate facet joint hypertrophy is seen. No significant neural foraminal or central canal narrowing can be seen. Stable from the prior study. C3-C4: Mild loss of disc height is seen. Loss of disc signal is seen. Moderate generalized disc osteophyte complex is seen. Moderate facet joint hypertrophy is seen. No significant neural foraminal narrowing is seen. The central canal is widely patent. When comparison is made with the prior images, these findings are similar. C4-C5: At least moderate loss of disc height and disc signal can be seen. Moderate generalized disc osteophyte complex is seen. Moderate facet joint hypertrophy is seen. There is moderate left-sided and no significant right-sided neural foraminal narrowing. The central canal is widely patent. The degree of left-sided neural foraminal narrowing is progressed compared to 202. C5-C6: Moderate to severe loss of disc height and disc signal can be seen. There is a degree of vertebral body fusion at this level. Moderate disc osteophyte complex is seen, which is eccentric to the right. Moderate facet joint hypertrophy is seen. There is moderate to severe right-sided and at least moderate left-sided neural foraminal narrowing. No central canal narrowing is seen. No significant change from the prior. C6-C7: At least moderate loss of disc height and disc signal can be seen. Moderate generalized disc osteophyte complex is seen. Moderate facet joint hypertrophy is seen. There is at least moderate bilateral neural foraminal narrowing. No central canal narrowing is seen. When comparison is made with the prior images, these findings are similar. C7-T1: Moderate loss of disc height is seen. Loss of disc signal is seen. Moderate generalized disc osteophyte complex is seen. Moderate facet joint hypertrophy is seen. There is moderate left-sided and [id number] right-sided neural foraminal narrowing. The central canal is widely patent. When comparison is made with the prior images, these findings are similar. IMPRESSION: Extensive postoperative changes are seen. Multiple levels of underlying degenerative change are seen, which are similar to 202, although the degree of neural foraminal narrowing on the left at C4-C5 is slightly progressed. Dictated by: Yassine Garcia M.D. on 06/05/2024 at 12:41 Approved by: Yassine Garcia M.D. on 06/05/2024 at 12:47
== END ==
PROVIDERS: PCP Family Medicine; Referring Provider Family Medicine; Visit Provider Family Medicine
DX: M47.812 Spondylosis without myelopathy or radiculopathy, cervical region (principal); M54.2 Cervicalgia; G89.29 Other chronic pain; R51.9 Headache, unspecified; D18.02 Hemangioma of intracranial structures; Z98.1 Arthrodesis status
CPT/HCPCS: 70551; 72141

== ENCOUNTER → 2024-10-03 12:03 | Outpatient (CLI) | payer MEDICARE, OTHER, SELFPAY ==
--- NOTE | 2024-10-03 12:06 | DI.RAD.S_ITS ---
PROCEDURE: XR CHEST 2V INDICATIONS: worsening cough TECHNIQUE: 2 views of the chest were acquired. COMPARISON: [facility], CR, XR CHEST 2V, 08/22/2019, 9:24. FINDINGS: Surgical changes and devices: Cervical and upper thoracic posterior spinal fixation hardware noted. Lungs and pleura: Lungs are clear. No pleural effusions or pneumothorax. Mediastinum: Mediastinal contours are normal. Heart size is normal. Bones and chest wall: No suspicious bony abnormalities. Soft tissues appear unremarkable. IMPRESSION: No acute cardiopulmonary abnormality is seen. Dictated by: Peter Cortez M.D. on 10/04/2024 at 14:14 Approved by: Peter Cortez M.D. on 10/04/2024 at 14:18
== END ==
PROVIDERS: PCP Family Medicine; Referring Provider Family Medicine; Visit Provider Family Medicine
DX: K59.01 Slow transit constipation (principal); J67.0 Farmer's lung; R53.83 Other fatigue; Z98.1 Arthrodesis status
CPT/HCPCS: 71046

== ENCOUNTER → 2024-10-05 15:20 | Outpatient (CLI) | payer MEDICARE, OTHER, SELFPAY ==
[2024-10-05 16:46] LABS: Alanine Aminotransferase 32 IU/L (<35); Albumin 4.5 g/dL (3.5-5.0); Albumin Globulin Ratio 1.6 (1.0-2.8); Alkaline Phosphatase 60 U/L (38-126); Aspartate Aminotransferase 39 IU/L (14-36); BUN Creatinine Ratio 27.8 (6-22); Bilirubin Total 0.3 mg/dL (0.2-1.3); Blood Urea Nitrogen 20 mg/dL (7-17); Calcium 9.5 mg/dL (8.4-10.2); Carbon Dioxide 28 mmol/L (22-32); Chloride 97 mmol/L (98-107); Estimated Glomerular Filt Rate > 60 mL/min (>60); Globulin 2.8 g/dL (1.7-4.1); Glucose 99 mg/dL (80-110); HEMOLYSIS < 15 (0-50); Potassium 4.5 mmol/L (3.4-5.1); Sodium 133 mmol/L (137-145); Total Protein 7.3 g/dL (6.3-8.2)
== END ==
PROVIDERS: PCP Family Medicine; Referring Provider Family Medicine; Visit Provider Family Medicine
DX: K59.01 Slow transit constipation (principal); J67.0 Farmer's lung; R53.83 Other fatigue
CPT/HCPCS: 36415; 80053

== ENCOUNTER → 2024-10-07 12:21 | Outpatient (CLI) | payer MEDICARE, OTHER, SELFPAY ==
[2024-10-07 15:25] LABS: Occult Blood 1 NEG (Negative); Occult Blood 2 NEG (Negative); Sample 2 time NO DATE GIVEN
[2024-10-07 15:27] LABS: Occult Blood 3 Negative (Negative); Sample 3 time NO DATE GIVEN
== END ==
PROVIDERS: PCP Family Medicine; Referring Provider Family Medicine; Visit Provider Family Medicine
DX: K59.01 Slow transit constipation (principal); J67.0 Farmer's lung; R53.83 Other fatigue
CPT/HCPCS: 82270; 87045; 87169; 87177

== ENCOUNTER → 2024-10-13 16:53 | Outpatient (CLI) | payer MEDICARE, OTHER, SELFPAY ==
--- NOTE | 2024-10-13 16:56 | DI.MG.S_ITS ---
MM screening mammo BI: 10/13/2024. BI-RADS: 2 CLINICAL: 79-year old female for bilateral screening mammogram. Tyrer-Cuzick lifetime risk of 1.4%. No personal or first-degree family history of breast cancer. PRIOR EXAMS 06/13/2018, 03/17/2017, 01/15/2016, 01/07/2015, 12/26/2013. MAMMOGRAPHY TECHNIQUE: 2D and 3D (tomosynthesis) digital mammographic views obtained, with additional images as needed for full coverage. Current study was also evaluated with a Computer Aided Detection (CAD) system. DENSITY C. The breasts are heterogeneously dense, which may obscure small masses. MAMMOGRAPHY FINDINGS Bilateral: Benign-appearing post-surgical changes noted. There are no suspicious masses, calcifications, or other findings in the breast. No significant change from comparison. IMPRESSION: * No evidence of malignancy with benign findings. RECOMMENDATIONS Bilateral * Annual screening mammography. OVERALL ASSESSMENT CATEGORY BI-RADS-2: Benign. The [employer] recommends annual screening mammography beginning at age 40 for women with average risk of breast cancer. ELECTRONICALLY SIGNED: Fransisca Moses M.D. on 10/16/2024 at 09:53:45 AM PT Interpreting Station ID: [id number]
== END ==
PROVIDERS: PCP Family Medicine; Referring Provider Family Medicine; Visit Provider Family Medicine
DX: Z12.31 Encounter for screening mammogram for malignant neoplasm of breast (principal); R92.333 Mammographic heterogeneous density, bilateral breasts
CPT/HCPCS: 77063; 77067

== ENCOUNTER 2024-11-21 21:26 | Emergency (ER) | payer MEDICARE, OTHER, SELFPAY ==
[2024-11-21] VITALS (7 sets, daily range): BP systolic 136–182; BP diastolic 60–89; PULSE 75–87; RESP 17–22; TEMP 36.6; O2SAT 95–100; BMI 20.9
--- NOTE | 2024-11-21 21:34 | DI.CT.S_ITS ---
PROCEDURE: CT HEAD/BRAIN WO CON INDICATIONS: thrown by cow TECHNIQUE: Noncontrast 4.5 mm thick angled axial sections acquired from the foramen magnum to the vertex, with coronal and sagittal reformats. For radiation dose reduction, the following was used: automated exposure control, adjustment of mA and/or kV according to patient size. COMPARISON: [facility], MR, MR HEAD/BRAIN WO CON, 06/03/2024, 14:37. [facility], CT, HEAD WITHOUT CONTRAST, 09/04/2016, 9:41. FINDINGS: Image quality: Diagnostic. CSF spaces: Basal cisterns are patent. No extra-axial fluid collections. Ventricles are normal in size and shape. Brain: No midline shift. No intracranial mass effect or hemorrhage. Right frontal lobe intraparenchymal calcification is slightly more prominent compared to 2017. Previously characterized as a cavernous angioma on prior MRI. No area of hypodensity in a large vascular distribution to suggest acute infarction. Periventricular hypodensity consistent with chronic microvascular ischemic change. Age-related parenchymal loss. Skull and face: Calvarium and visualized facial bones are intact, without suspicious lesions. Sinuses: Opacification of the left maxillary sinus. Ethmoid mucosal thickening. Mastoids are clear. IMPRESSION: No acute intracranial hemorrhage. Chronic left maxillary sinusitis. Dictated by: Kam Fuchs M.D. on 11/21/2024 at 22:17 Approved by: Kam Fuchs M.D. on 11/21/2024 at 22:22
--- NOTE | 2024-11-21 21:34 | DI.CT.S_ITS ---
PROCEDURE: CT CERVICAL SPINE WO CON INDICATIONS: thrown by cow TECHNIQUE: Noncontrast 3 mm thick sections acquired from the skull base to the T4 level. Sagittal and coronal reformats were then constructed. For radiation dose reduction, the following was used: automated exposure control, adjustment of mA and/or kV according to patient size. COMPARISON: [facility], MR, MR CERVICAL SPINE WO CON, 06/03/2024, 14:37. [facility], CR, XR CERVICAL SPINE 2V OR 3V, 11/12/2023, 18:17. [facility], CR, XR CERVICAL SPINE 2V OR 3V, 02/12/2021, 15:50. FINDINGS: Image quality: Excellent. Bones: No fractures identified. No dislocations. C3-T3 posterior fixation. Multilevel laminectomy. No hardware fracture identified. Visualized superior ribs are intact. Soft tissues: Prevertebral soft tissues are normal in thickness. No paravertebral hematomas. No apical pneumothoraces. Left maxillary sinusitis. IMPRESSION: No fracture identified. Posterior cervical spine fusion appears stable. Dictated by: Kam Fuchs M.D. on 11/21/2024 at 22:22 Approved by: Kam Fuchs M.D. on 11/21/2024 at 22:28
--- NOTE | 2024-11-21 21:34 | DI.CT.S_ITS ---
PROCEDURE: CT TRAUMA CHEST ABDOMEN PELVIS INDICATIONS: left scapula pain and rib pain, thrown by cow TECHNIQUE: MDCT axial chest images were obtained with IV contrast in the arterial phase. Maximum intensity projections and multiplanar reformats were obtained. MDCT axial abdomen and pelvis images were obtained with IV contrast in the portal venous phase. Multiplanar reformats were obtained. Optional delayed phase scanning may also be obtained Advanced techniques were used to lower patient radiation exposure. COMPARISON:[facility], MR, MR CERVICAL SPINE WO CON, 06/03/2024, 14:37. [facility], CT, CT CERVICAL SPINE WO CON, 11/21/2024, 21:42. FINDINGS Image Quality: Diagnostic. Chest: Lungs and pleura: No pneumothorax or hemothorax. No pulmonary contusions or lacerations. Mild scarring or atelectasis at the right lung base. No solid pulmonary nodule requiring follow-up. Mild emphysematous change. Vascular: No dissection or pseudoaneurysm. No incidental central pulmonary embolism. No hemopericardium. Mediastinum: No mediastinum hematoma. No suspicious mass or lymph nodes. No actionable thyroid nodules. Chest wall: Intact clavicles, scapula, and glenohumeral joint. No displaced rib fractures. C-spine fixation and laminectomies. Irregularity at the left T1 posterior elements, (4/). Thoracic spine: No acute fracture or traumatic subluxation. ABDOMEN and PELVIS: Liver: No laceration or capsular hematoma. Gallbladder: Absent. Biliary system: Non-dilated. Pancreas: Unremarkable. Spleen: No laceration or capsular hematoma. Adrenals: No suspicious nodules. Kidneys: No contrast extravasation or hydronephrosis. No solid masses. Vessels and lymph nodes: No pathology lymph nodes by size criteria. No dissection or aneurysm. No retroperitoneal hematoma. Bowel and peritoneum: No suspicious region of mesenteric hemorrhage or hemoperitoneum. No bowel obstruction. Rectal anastomosis. Stomach is prominent. A prominent stool in the colon. The appendix is not identified. Pelvis: Unremarkable bladder. Uterus is absent. Pelvic ring and femurs: No pelvic ring disruption. No hip fractures. Left hip arthroplasty. Lumbar spine: No acute fracture. Multilevel DDD. Laminectomies. Anterolisthesis of L5 on S1 measuring 1.1 cm. Abdominal wall: No drainable fluid collection or hematoma. IMPRESSION: 1. Irregularity at the left T1 posterior elements. This could represent nondisplaced fracture. Chronic fracture is also possibility. 2. No acute rib fractures or scapula fracture identified. 3. Lungs are clear. 4. No solid parenchymal injury. No free fluid. Dictated by: Kam Fuchs M.D. on 11/21/2024 at 22:29 Approved by: Kam Fuchs M.D. on 11/21/2024 at 22:52
[2024-11-21 21:47] LABS: Add Manual Diff / Slide Review NO; Basophils Absolute Auto 100 /uL (0-100); Basophils Percent Auto 1.2 % (0-2); Eosinophils Absolute Auto 500 /uL (0-450); Eosinophils Percent Auto 5.8 % (2-4); Hematocrit 40.7 % (36-46); Hemoglobin 13.8 g/dL (12.0-16.0); Lymphocytes Absolute Auto 2600 /uL (1100-4500); Lymphocytes Percent Auto 34.1 % (25-40); Mean Corpuscular Hemoglobin 29.8 PG (26-34); Mean Corpuscular Volume 87.8 fL (80-100); Monocytes Absolute Auto 600 /uL (0-900); Monocytes Percent Auto 7.8 % (3-14); Neutrophils Absolute Auto 3900 /uL (1500-7000); Neutrophils Percent Auto 51.1 % (50-75); Platelet Count 166 X10^3/uL (150-400); Red Blood Cell Count 4.63 X10^6/uL (4.0-5.2); Red Cell Distribution Width 13.1 % (11.6-14.8); White Blood Cell Count 7.7 X10^3/uL (4.5-11.0)
[2024-11-21 21:54] LABS: INR 1.1 (0.9-1.3); Prothrombin Time 12.8 SECONDS (9.4-12.5)
[2024-11-21 21:57] LABS: PTT Partial Thromboplastin Tim 35 SECONDS (25.1-36.5)
[2024-11-21 21:58] LABS: Alanine Aminotransferase 35 IU/L (<35); Albumin 4.8 g/dL (3.5-5.0); Albumin Globulin Ratio 1.7 (1.0-2.8); Alkaline Phosphatase 74 U/L (38-126); Aspartate Aminotransferase 49 IU/L (14-36); Bilirubin Total 0.3 mg/dL (0.2-1.3); Blood Urea Nitrogen 22 mg/dL (7-17); Carbon Dioxide 24 mmol/L (22-32); Chloride 95 mmol/L (98-107); Estimated Glomerular Filt Rate > 60 mL/min (>60); Globulin 2.9 g/dL (1.7-4.1); Glucose 126 mg/dL (70-99); HEMOLYSIS < 15 (0-50); Potassium 3.4 mmol/L (3.4-5.1); Sodium 132 mmol/L (137-145); Total Protein 7.7 g/dL (6.3-8.2)
[2024-11-21] MEDS: CYCLOBENZAPRINE 10 MG TABLET 5 MG PO (22:51)
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
[2024-11-21] MEDS: HYDROCODONE/ACET 5/325 TABLET 1 TAB PO (23:28)
== END 2024-11-21 23:35 | disposition home or self-care (01) ==
PROVIDERS: Emergency Provider Emergency Medicine; PCP Family Medicine
DX: S40.012A Contusion of left shoulder, initial encounter (principal); W55.22XA Struck by cow, initial encounter; M54.2 Cervicalgia; Z98.890 Other specified postprocedural states; G89.29 Other chronic pain
CPT/HCPCS: 36415; 70450; 71275; 72125; 74177; 80053; 85025; 85610; 85730; 99284; Q9967

== ENCOUNTER → 2024-12-05 10:53 | Outpatient (CLI) | payer MEDICARE, OTHER, SELFPAY ==
--- NOTE | 2024-12-05 10:58 | DI.RAD.S_ITS ---
PROCEDURE: XR CHEST 2V INDICATIONS: difficulty breathing s/p traumatic injury TECHNIQUE: 2 views of the chest were acquired. COMPARISON: [facility], CR, XR CHEST 2V, 10/03/2024, 12:02. FINDINGS: Surgical changes and devices: Cervicothoracic fusion hardware. Lungs and pleura: Lungs are clear. No pleural effusions or pneumothorax. Mediastinum: Mediastinal contours are normal. Heart size is normal. Bones and chest wall: No suspicious bony abnormalities. Soft tissues appear unremarkable. IMPRESSION: No acute cardiopulmonary abnormality is seen. Dictated by: Lito Hanson M.D. on 12/05/2024 at 11:43 Approved by: Lito Hanson M.D. on 12/05/2024 at 11:45
== END ==
PROVIDERS: PCP Family Medicine; Referring Provider Family Medicine; Visit Provider Family Medicine
DX: S40.012A Contusion of left shoulder, initial encounter (principal); J67.0 Farmer's lung; R06.89 Other abnormalities of breathing; X58.XXXA Exposure to other specified factors, initial encounter; Z98.1 Arthrodesis status
CPT/HCPCS: 71046